=== PATIENT | male | born 1985 | race American Indian/Alaskan Native ===

== ENCOUNTER 2016-10-27 00:14 | Inpatient (IN) | payer SELFPAY ==
[2016-10-27] MEDS ORDERED: CATAPRES ONE (00:38)
[2016-10-27] MEDS ORDERED: CATAPRES PO ONE (00:55)
[2016-10-27 01:54] LABS: Urine Drugs of Abuse Note Disclamer
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
[2016-10-27 02:12] LABS: Bilirubin,Urine NEG (Negative); Blood,Urine NEG (Negative); Ketones,Urine 20 mg/dL (Negative); Leukocyte Esterase,Urine NEG (Negative); Mucus,Urine FEW /HPF; Nitrite,Urine NEG (Negative); Protein,Urine <15 mg/dL mg/dL (Negative); RBC,Urine < 1.0 /HPF (0.0-6.0)
[2016-10-27 02:40] LABS: Basophils % (Auto) 0.8 % (0.0-1.8); Eosinophils % (Auto) 3.6 % (0.0-4.3); Hematocrit 35.4 % (35.5-45.6); Hemoglobin 11.5 gm/dl (11.8-15.2); Mean Corpuscular HGB Conc 33 % (32-34); Mean Corpuscular Hemoglobin 29 pg (28-32); Mean Corpuscular Volume 89 fl (84-94); Red Blood Count 3.99 M/mm3 (3.65-5.03); White Blood Count 5.1 K/mm3 (4.5-11.0)
[2016-10-27 02:56] LABS: INR 0.97 (0.87-1.13); Partial Thromboplastin Time 26.1 Sec. (24.2-36.6)
[2016-10-27 03:03] LABS: Anion Gap 22 mmol/L; Blood Urea Nitrogen 6 mg/dL (9-20); Calcium 8.7 mg/dL (8.4-10.2); Carbon Dioxide 22 mmol/L (22-30); Chloride 95.9 mmol/L (98-107); Glucose 91 mg/dL (75-100); Potassium 3.3 mmol/L (3.6-5.0); Sodium 137 mmol/L (137-145)
[2016-10-27] MEDS ORDERED: ATIVAN ONE (03:57)
[2016-10-27 04:01] LABS: Platelet Count 219 K/mm3 (140-440)
[2016-10-27] MEDS ORDERED: ATIVAN IV PRN (04:02)
[2016-10-27] MEDS ORDERED: ATIVAN IV ONE (04:02)
[2016-10-27] MEDS ORDERED: VITAMIN B-1 100 MG, FOLVITE 1 MG, INFUVITE 10 ML in NACL 0.9% 1000 ML 1,000 ML IV ONE (04:02)
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
[2016-10-27] MEDS ORDERED: MORPHINE IV ONE (04:06)
[2016-10-27] MEDS ORDERED: TYLENOL PO ONE (04:06)
[2016-10-27] MEDS ORDERED: DULCOLAX PR PRN (05:18)
[2016-10-27] MEDS ORDERED: MILK OF MAGNESIA PO PRN (05:18)
[2016-10-27] MEDS ORDERED: TYLENOL PO PRN (05:18)
[2016-10-27] MEDS ORDERED: ZOFRAN IV PRN (05:18)
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
--- NOTE | 2016-10-27 06:20 | Admit Criteria Form ---
Admission Criteria Documentation: ALCOHOL AND PSYCHOACTIVE SUBSTANCE WITHDRAWAL Clinical Indications for Inpatient Care (Place ' X' for any and all applicable criteria): Ongoing inpatient care may be indicated for substance withdrawal[B][C] with ANY ONE of the following(1)(2)(3)(4)(21): [X ]I. Delirium due to alcohol or sedative[D] withdrawal is present. [ ]II. Marked signs of withdrawal are present as indicated by ANY ONE of the following(15)(22)(23) [ ]a) Heart rate greater than 120 beats per minute is present. [ ]b) Severe vomiting is present (eg, precludes maintenance of oral hydration). [ ]c) Grossly visible tremor is present. [ ]d) Profuse perspiration is present. [ ]e) Temperature greater than 101 degrees F (38.3 degrees C) is present. [ ]f) Other signs of severe withdrawal are present (eg, Altered mental status ) [ ]g) Severe withdrawal identified by standardized assessment score[A] [ ]III. Signs of withdrawal that require continued inpatient treatment as indicated by ANY ONE of the following(15)(22)(23): [ ]a) Inadequate response to pharmacotherapy (eg, benzodiazepines) [ ]b) Outpatient or lower level of care is not feasible or appropriate (eg, unavailable or inappropriate to patient condition or treatment history). [ ]IV. Withdrawal signs with high-risk indicator are present as manifested by ALL of the following[A](15)(22)(23) [ ]a) Signs of withdrawal are present as indicated by ANY ONE of the following: [ ]i. Tachycardia is present. [ ]ii. Nausea or vomiting is present. [ ]iii. Tremor is present. [ ]iv. Increased perspiration is present. [ ]v. Other signs of withdrawal are present. [ ]vi. Withdrawal identified by standardized assessment score [A] [ ]b) Elevated risk due to historical or comorbid factor is present as indicated by ANY ONE of the following: [ ]i. History of delirium due to withdrawal is present. [ ]ii. History of seizures due to withdrawal is present.[E] [ ]iii. Intrinsic seizure disorder (epilepsy) is present. [ ]iv. Patient is . [ ]v. Other significant medical history (eg, severe cardiac disease) is present, which is assessed to be at risk for destabilization due to withdrawal. [ ]V. Serious electrolyte abnormalities (eg, hyponatremia, hypokalemia, hypophosphatemia) requiring correction performable only in inpatient setting(6)(25) [ ]. Severe hypoglycemia requiring glucose infusions performable only in inpatient setting(6) [ ]VII. Drug toxicity or instability, such as Altered mental status, respiratory depression, or arrhythmias, that requires inpatient care [ ]VIII. Danger judged unmanageable at lower level of care because of ANY ONE of the following [ ]a) Danger to self [ ]b) Danger to others [ ]c) Grave disability (eg, inability to perform self-care necessary at lower level of care) The original [facility] Care Guidelines content created by [facility] Care Guidelines has been revised. The portions of the content which have been revised are identified through the use of italic text or in bold. [facility] [place] Guidelines has neither reviewed nor approved the modified material. All other unmodified content is copyright [facility] Care Guidelines. Please see references footnoted in the original [facility] CareGuidelines edition 2016 Admission Criteria Met: Yes
[2016-10-27] MEDS: PERCOCET 5/325 PO PRN ×3 (07:57→19:45)
[2016-10-27] MEDS: ATIVAN IV PRN ×4 (07:58→20:06)
[2016-10-27] MEDS: VITAMIN B-1 PO SCH (10:23)
[2016-10-27] MEDS: FOLVITE PO SCH (10:24)
[2016-10-27] MEDS: PROTONIX PO SCH (10:24)
[2016-10-27] MEDS: XARELTO PO SCH (10:24)
[2016-10-27] MEDS: D5W/0.45% NACL/KCL 20 MEQ 20 MEQ/1,000 ML BAG IV SCH (11:40)
[2016-10-27] MEDS: FLONASE NS SCH (21:19)
[2016-10-28] MEDS: ATIVAN IV PRN ×7 (01:54→23:16)
[2016-10-28] MEDS: PERCOCET 5/325 PO PRN ×4 (02:16→21:31)
[2016-10-28 06:49] LABS: Basophils % (Auto) 0.8 % (0.0-1.8); Hematocrit 34.8 % (35.5-45.6); Hemoglobin 11.2 gm/dl (11.8-15.2); Mean Corpuscular HGB Conc 32 % (32-34); Mean Corpuscular Hemoglobin 29 pg (28-32); Mean Corpuscular Volume 91 fl (84-94); Red Blood Count 3.85 M/mm3 (3.65-5.03); Red Cell Distribution Width 18.8 % (13.2-15.2); White Blood Count 4.4 K/mm3 (4.5-11.0)
[2016-10-28 07:09] LABS: BUN/Creatinine Ratio 8.33; Blood Urea Nitrogen 5 mg/dL (9-20); Calcium 9.1 mg/dL (8.4-10.2); Carbon Dioxide 20 mmol/L (22-30); Glucose 76 mg/dL (75-100); Magnesium 1.4 mg/dL (1.7-2.3)
[2016-10-28 07:10] LABS: Anion Gap 19 mmol/L; Chloride 100.8 mmol/L (98-107); Potassium 4.3 mmol/L (3.6-5.0); Sodium 135 mmol/L (137-145)
[2016-10-28 07:33] LABS: Platelet Count 161 K/mm3 (140-440)
[2016-10-28] MEDS: XARELTO PO SCH (10:36)
[2016-10-28] MEDS: PROTONIX PO SCH (10:36)
[2016-10-28] MEDS: FOLVITE PO SCH (10:36)
[2016-10-28] MEDS: VITAMIN B-1 PO SCH (10:39)
[2016-10-28] MEDS: FLONASE NS SCH ×3 (10:40→21:32)
[2016-10-28] MEDS ORDERED: D5/0.45NS 1,000 ML IV SCH (11:00)
[2016-10-28] MEDS: APRESOLINE IV PRN (11:16)
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
[2016-10-28] MEDS: LIBRIUM PO PRN ×2 (15:20→21:31)
[2016-10-28] MEDS: D5W/0.45% NACL/KCL 20 MEQ 20 MEQ/1,000 ML BAG IV SCH (16:08)
[2016-10-28] MEDS ORDERED: PERCOCET 5/325 PO PRN (20:43)
[2016-10-28] MEDS: ROXICODONE PO PRN (21:31)
[2016-10-29] MEDS: APRESOLINE IV PRN (00:34)
[2016-10-29] MEDS: ATIVAN IV PRN ×2 (02:31→03:26)
[2016-10-29] MEDS: ROXICODONE PO PRN ×4 (03:26→22:15)
[2016-10-29] MEDS: PERCOCET 5/325 PO PRN ×2 (03:26→10:24)
[2016-10-29] MEDS: LIBRIUM PO PRN (03:27)
[2016-10-29] MEDS: HABITROL TD SCH (04:54)
[2016-10-29] MEDS ORDERED: ATIVAN PO PRN (05:31)
[2016-10-29] MEDS: ATIVAN PO PRN ×2 (06:10→08:18)
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
[2016-10-29] MEDS: FOLVITE PO SCH (09:24)
[2016-10-29] MEDS: XARELTO PO SCH (09:24)
[2016-10-29] MEDS: VITAMIN B-1 PO SCH (09:24)
[2016-10-29] MEDS: PROTONIX PO SCH (09:24)
[2016-10-29] MEDS: FLONASE NS SCH ×2 (09:25→23:39)
[2016-10-29] MEDS: HCTZ PO SCH (09:28)
[2016-10-29] MEDS ORDERED: APRESOLINE IV PRN (09:30)
[2016-10-29] MEDS ORDERED: ZESTRIL PO SCH (10:00)
[2016-10-29] MEDS ORDERED: LIBRIUM PO PRN ×2 (11:30)
[2016-10-29] MEDS: LIBRIUM PO SCH ×3 (14:13→21:50)
[2016-10-30] MEDS: ROXICODONE PO PRN (04:58)
[2016-10-30 06:12] LABS: BUN/Creatinine Ratio 16.66; Blood Urea Nitrogen 10 mg/dL (9-20); Calcium 9.3 mg/dL (8.4-10.2); Carbon Dioxide 23 mmol/L (22-30); Chloride 96.8 mmol/L (98-107); Glucose 83 mg/dL (75-100); Sodium 134 mmol/L (137-145)
[2016-10-30 06:15] LABS: Anion Gap 19 mmol/L; Potassium 4.4 mmol/L (3.6-5.0)
[2016-10-30 08:34] VITALS: BP 100/57
[2016-10-30] MEDS: HABITROL TD SCH ×2 (08:49→10:00)
[2016-10-30] MEDS: PROTONIX PO SCH ×2 (08:49→10:00)
[2016-10-30] MEDS: FOLVITE PO SCH ×2 (08:50→10:00)
[2016-10-30] MEDS: XARELTO PO SCH ×2 (08:50→10:00)
[2016-10-30] MEDS: VITAMIN B-1 PO SCH ×2 (08:50→10:00)
[2016-10-30] MEDS: HCTZ PO SCH ×2 (08:50→10:00)
[2016-10-30] MEDS: FLONASE NS SCH ×2 (08:51→10:58)
[2016-10-30] MEDS: LIBRIUM PO SCH ×2 (08:52→10:00)
--- NOTE | 2016-10-30 08:55 | Discharge Summary ---
Providers - Providers Date of Admission: 10/27/16 05:18 Attending physician: TYREE RAYO MD Primary care physician: [employer]OSED [employer] SCREEN WATCHER Hospitalization Condition: Serious Hospital course: 31-year-old male with a past medical history of heavy alcohol abuse who was living in a tent ( homeless) who presented to the hospital for alcohol detox. He was treated with IV fluids, benzodiazepine taper, he was found to have low magnesium and low potassium which were repleted. He clinically improved, he was continued on blood thinners for history of multiple PEs. Patient clinically improved and retirement accommodations were obtained for him prior to discharge X Discharge diagnoses 1. Alcohol withdrawal 2. Alcohol dependence Patient has been counseled, he exercises desire to quit 3. History of multiple PEs 4. Hypokalemia 5. Hypomagnesemia Disposition: DISCHARGED TO HOME OR SELFCARE Time spent for discharge: 35 minutes Core Measure Documentation - Palliative Care Palliative Care/ Comfort Measures: Not Applicable - Core Measures Any of the following diagnoses?: none Exam - Constitutional Vitals: Temp Pulse Resp BP Pulse Ox 98.1 F 68 16 100/57 100 10/30/16 08:33 10/30/16 08:33 10/30/16 08:33 10/30/16 08:33 10/30/16 08:33 General appearance: Present: no acute distress, well-nourished - EENT Eyes: Present: PERRL ENT: hearing intact, clear oral mucosa - Neck Neck: Present: supple, normal ROM - Respiratory Respiratory effort: normal Respiratory: bilateral: CTA - Cardiovascular Heart Sounds: Present: S1 & S2. Absent: rub, click - Extremities Extremities: pulses symmetrical, No edema Peripheral Pulses: within normal limits - Abdominal General gastrointestinal: Present: soft, non-tender, non-distended, normal bowel sounds Male genitourinary: Present: normal - Integumentary Integumentary: Present: clear, warm, dry - Musculoskeletal Musculoskeletal: gait normal, strength equal bilaterally - Psychiatric Psychiatric: appropriate mood/affect, intact judgment & insight - Neurologic Neurologic: CNII-XII intact, moves all extremities Plan Follow up with: PRIMARY CARE, [Primary Care Provider] - 3-5 Days Prescriptions: Folic Acid [Folvite] 1 mg PO QDAY #30 tablet Klonopin 1 mg PO BID #14 Mometasone Furoate [Nasonex] 2 spray NS BID #1 spray.pump Nicotine [Habitrol] 14 mg TD QDAY #14 patch Oxycodone HCl/Acetaminophen [Percocet 10/325 mg] 1 each PO Q6HR PRN #14 tablet PRN Reason: Pain Rivaroxaban [Xarelto] 20 mg PO QDAY #30 tablet Thiamine [Vitamin B-1] 100 mg PO DAILY #30 tablet
[2016-10-30] MEDS ORDERED: PERCOCET 5/325 PO ONE (11:01)
[2016-10-30] MEDS ORDERED: LIBRIUM PO SCH (11:30)
[2016-10-31] MEDS ORDERED: LIBRIUM PO SCH (11:30)
== END 2016-10-30 11:15 | disposition home or self-care (01) | DRG 897 ==
LOC: ED 00:14 → 4A 05:18
PROVIDERS: ADMIT Internal Medicine; ATTEND Internal Medicine
DX: F10.231 Alcohol dependence with withdrawal delirium (principal); Z86.711 Personal history of pulmonary embolism; F41.9 Anxiety disorder, unspecified; Z96.653 Presence of artificial knee joint, bilateral; Z86.718 Personal history of other venous thrombosis and embolism; M10.9 Gout, unspecified; Z82.49 Family history of ischemic heart disease and other diseases of the circulatory system; F17.210 Nicotine dependence, cigarettes, uncomplicated; Z88.9 Allergy status to unspecified drugs, medicaments and biological substances; Z59.0 Homelessness; E87.6 Hypokalemia; E83.42 Hypomagnesemia; I10 Essential (primary) hypertension; Z71.41 Alcohol abuse counseling and surveillance of alcoholic; G44.319 Acute post-traumatic headache, not intractable
CPT/HCPCS: 36415; 70486; 80048; 80307; 80320; 81001; 82962; 83735; 84484; 85025; 85610; 85730; 93005; 93010; 96365; 96366; 96375; G0480; J0360; J2060; J2270; J2405; J3411; J7030

== ENCOUNTER 2017-02-05 22:48 | Emergency (ER) | payer SELFPAY ==
[2017-02-05 23:32] LABS: Urine Drugs of Abuse Note Disclamer
[2017-02-05 23:37] LABS: Bilirubin,Urine NEG (Negative); Blood,Urine SM (Negative); Ketones,Urine NEG (Negative); Leukocyte Esterase,Urine NEG (Negative); Nitrite,Urine NEG (Negative); Protein,Urine <15 mg/dL mg/dL (Negative); RBC,Urine < 1.0 /HPF (0.0-6.0); Urobilinogen,Urine < 2.0 mg/dL (<2.0); WBC,Urine < 1.0 /HPF (0.0-6.0)
[2017-02-06 00:11] LABS: Hematocrit 39.7 % (35.5-45.6); Hemoglobin 13.3 gm/dl (11.8-15.2); Mean Corpuscular HGB Conc 34 % (32-34); Mean Corpuscular Hemoglobin 29 pg (28-32); Mean Corpuscular Volume 87 fl (84-94); Platelet Count 199 K/mm3 (140-440); Red Blood Count 4.57 M/mm3 (3.65-5.03); White Blood Count 3.9 K/mm3 (4.5-11.0)
[2017-02-06 00:19] LABS: Red Cell Distribution Width 20.2 % (13.2-15.2)
[2017-02-06 00:23] LABS: Alanine Aminotransferase 34 units/L (7-56); Albumin 4.5 g/dL (3.9-5); Albumin/Globulin Ratio 1.4 %; Alkaline Phosphatase 68 units/L (35-129); BUN/Creatinine Ratio 11.66; Blood Urea Nitrogen 7 mg/dL (9-20); Calcium 9.2 mg/dL (8.4-10.2); Carbon Dioxide 24 mmol/L (22-30); Chloride 97.9 mmol/L (98-107); Glucose 97 mg/dL (75-100); Lipase 53 units/L (13-60); Potassium 3.6 mmol/L (3.6-5.0); Sodium 139 mmol/L (137-145); Total Protein 7.8 g/dL (6.3-8.2)
[2017-02-06 00:29] LABS: Anion Gap 21 mmol/L
[2017-02-06] MEDS ORDERED: NACL 0.9% 1000 ML 1,000 ML IV ONE (01:36)
--- NOTE | 2017-02-06 01:52 | Emergency Department Report ---
HPI - General Chief Complaint: Abdominal Pain Time Seen by Provider: 02/06/17 01:13 - HPI HPI: This is a 31-year-old -[place] male presents to the emergency department with complaint of right upper quadrant abdominal pain that is been going on since yesterday. The patient says "I am a known alcoholic" and says that he drank 3 large beers today, despite the pain, hoping that it would get rid of his discomfort. He has a past medical history of DVT and is on Xarelto. He also has a history of coronary artery disease, hypertension, elevated liver function tests, alcohol withdrawal seizures, pancreatitis. He has not taken anything, besides alcohol consumption, for his pain prior to presentation. No recent travel or sick contacts at home. He does not have a primary care physician. He denies any illicit drugs. ED Past Medical Hx - Past Medical History Hx Hypertension: Yes Hx Heart Attack/AMI: Yes Hx Deep Vein Thrombosis: Yes Hx Pulmonary Embolism: Yes Hx Liver Disease: Yes (elev. LFTs) Hx Seizures: Yes (ETOH withdrawal) Hx Psychiatric Treatment: Yes (Anxiety, ADHD,) Hx Asthma: Yes Additional medical history: DVTs, pancreatitis, COLITIS. ETOH withdrawal sz- intubated @ [place] week of 10/06/14, MRSA - Surgical History Additional Surgical History: b/l knee surgeries - Social History Smoking Status: Current Every Day Smoker Substance Use Type: Alcohol - Medications Home Medications: Home Medications Medication Instructions Recorded Confirmed Last Taken Type Esomeprazole Magnesium [NexIUM] 20 mg PO QDAY #30 tab 10/30/16 10/27/16 Unknown Rx Folic Acid [Folvite] 1 mg PO QDAY #30 tablet 10/30/16 Unknown Rx Klonopin 1 mg PO BID #14 10/30/16 Unknown Rx Mometasone Furoate [Nasonex] 2 spray NS BID #1 spray.pump 10/30/16 Unknown Rx Nicotine [Habitrol] 14 mg TD QDAY #14 patch 10/30/16 Unknown Rx Oxycodone HCl/Acetaminophen 1 each PO Q6HR PRN #14 tablet 10/30/16 Unknown Rx [Percocet 10/325 mg] Rivaroxaban [Xarelto] 20 mg PO QDAY #30 tablet 10/30/16 Unknown Rx Thiamine [Vitamin B-1] 100 mg PO DAILY #30 tablet 10/30/16 Unknown Rx ED Review of Systems ROS: Stated complaint: ABD PAIN Other details as noted in HPI Comment: All other systems reviewed and negative Constitutional: denies: chills, fever Eyes: denies: eye pain, eye discharge, vision change ENT: denies: ear pain, throat pain Respiratory: denies: cough, shortness of breath, wheezing Cardiovascular: denies: chest pain, palpitations Gastrointestinal: abdominal pain. denies: nausea, vomiting Genitourinary: denies: urgency, dysuria Musculoskeletal: denies: back pain, joint swelling, arthralgia Skin: denies: rash, lesions Neurological: denies: headache, weakness, paresthesias Physical Exam - Physical Exam Vital Signs: Vital Signs 02/05/17 23:17 Temperature 98.6 F Pulse Rate 116 H Respiratory 18 Rate Blood Pressure 148/102 Blood Pressure 148/102 [Left] O2 Sat by Pulse 96 Oximetry Physical Exam: GENERAL: The patient is well-developed well-nourished. HEENT: Normocephalic. Atraumatic. Extraocular motions are intact. Patient has moist mucous membranes. Pupils equal reactive to light bilaterally. NECK: Supple. Trachea is midline. CHEST/LUNGS: Clear to auscultation. There is no respiratory distress noted. HEART/CARDIOVASCULAR: Regular. There is no tachycardia. There is no gallop rub or murmur. ABDOMEN: Abdomen is soft. There is tenderness to palpation to the epigastric and right upper quadrant region of the abdomen. No guarding rebound tenderness. No peritoneal signs. Patient has normal bowel sounds. There is no abdominal distention. SKIN: Skin is warm and dry. NEURO: The patient is awake, alert, and oriented. The patient is cooperative. The patient has no focal neurologic deficits. The patient has normal speech and gait. MUSCULOSKELETAL: There is no tenderness or deformity. There is no limitation range of motion. There is no evidence of acute injury. ED Course Vital Signs 02/05/17 23:17 Temperature 98.6 F Pulse Rate 116 H Respiratory 18 Rate Blood Pressure 148/102 Blood Pressure 148/102 [Left] O2 Sat by Pulse 96 Oximetry ED Medical Decision Making - Lab Data Result diagrams: 02/05/17 23:39 02/05/17 23:39 - Radiology Data Radiology results: report reviewed CT of the abdomen and pelvis without contrast did not show any acute process. Right upper quadrant abdominal ultrasound does not show any acute process. - Medical Decision Making 31-year-old male with known history of alcoholism presents with alcohol intoxication and complaint of abdominal pain. His labs show slightly elevated bilirubin and elevated AST. The rest the labs are mostly unremarkable except for the blood alcohol level which was at 0.3. There was an abdominal ultrasound and a CT of the abdomen without contrast that did not show any acute process or etiology of his symptoms. He was given an air bag, IV fluid resuscitation. Attempted to see if there was an patient detox he can be sent to but without insurance there is nothing available at this time. He remained in the emergency department until he got to a legally sober level. He was monitored the entire time and there is no sign of any withdrawal symptoms and the patient was discharged home with referrals for primary care, gastroenterology and [facility]. Critical Care Time: No Critical care attestation.: If time is entered above; I have spent that time in minutes in the direct care of this critically ill patient, excluding procedure time. ED Disposition Clinical Impression: Alcoholism /alcohol abuse Alcohol intoxication Qualifiers: Complication of substance-induced condition: with unspecified complication Qualified Code(s): F10.929 - Alcohol use, unspecified with intoxication, unspecified Abdominal pain Qualifiers: Abdominal location: right upper quadrant Qualified Code(s): R10.11 - Right upper quadrant pain Disposition: DC-01 TO HOME OR SELFCARE Is pt being admited?: No Condition: Stable Instructions: Alcohol Intoxication (ED), Abuse of Alcohol (ED), Abdominal Pain (ED) Additional Instructions: Please follow-up with a primary care doctor in the next few days. I referral for a local desulphuring operator, Dr. Kramer, occasionally need to follow-up regarding her abdominal pain. Return to the emergency department with any worsening of your symptoms or any acute distress. I have given you a referral for the [facility] facility medication would like to talk to someone about assisting with alcohol detox. Referrals: [facility] [Outside] - 3-5 Days [facility] [Outside] - 3-5 Days MANASA KRAMER MD [Staff Physician] - 3-5 Days PRIMARY CARE, [Primary Care Provider] - 3-5 Days ROBERTO GARSIA MD [Staff Physician] - 3-5 Days
[2017-02-06] MEDS ORDERED: 1: FOLVITE 1 MG, INFUVITE 10 ML, VITAMIN B-1 100 MG in NACL 0.9% 1000 ML 988.8 ML 2: NA IV SCH (02:00)
[2017-02-06 02:09] LABS: Anisocytosis 1+; Blastocytes % (Manual) 0 %; Diff Status Complete; Platelet Estimate Consistent w Auto
--- NOTE | 2017-02-06 02:29 | Ultrasound Report ---
FINAL REPORT PROCEDURE: US ABDOMEN LIMITED TECHNIQUE: Real-time sonography was performed of the with image documentation. CPT 28404 HISTORY: elevated bilirubin and AST COMPARISON: No prior studies are available for comparison. FINDINGS: The gallbladder is normal. No stones are identified. Common bile duct measures 3 millimeters. The visualized portion of the liver, right kidney and pancreas are normal.. IMPRESSION: The gallbladder is normal. The common bile duct is normal measuring 3 millimeters
[2017-02-06] MEDS ORDERED: NACL ONE (05:23)
--- NOTE | 2017-02-06 06:46 | Cat Scan Report ---
FINAL REPORT PROCEDURE: CT ABDOMEN PELVIS WO CON TECHNIQUE: Computerized axial tomography of the abdomen and pelvis was performed without intravenous contrast. This study is performed without intravascular contrast material and its sensitivity for abdominal and pelvic pathology, including neoplasms, inflammation, abscess, free fluid, thrombosis, arterial dissection and infarction, is reduced compared with a contrast enhanced study. HISTORY: Abd pain COMPARISON: No prior studies are available for comparison. FINDINGS: Visualized lower thorax: No significant abnormality. Liver: Normal size and attenuation. Spleen: Normal size and attenuation. Gallbladder and biliary system: Normal. Pancreas: Normal. Adrenals: Normal. Kidneys: Normal. GI tract: No obstruction. No ileus or enteritis. The cecum, appendix region and colon are normal.. Lymph nodes and mesentery: Normal. Vasculature: There is an inferior vena cava filter. Bladder: Normal. Reproductive organs: Normal. Peritoneum: No free fluid. Musculoskeletal structures: No significant abnormality. Other: None. IMPRESSION: There is no evidence of intestinal or urinary tract obstruction. No ileus or enteritis..
[2017-02-06 10:58] VITALS: BP 137/78
== END 2017-02-06 10:58 | disposition home or self-care (01) ==
LOC: ED 22:48
DX: F10.929 Alcohol use, unspecified with intoxication, unspecified (principal); R10.11 Right upper quadrant pain; I10 Essential (primary) hypertension; I25.2 Old myocardial infarction; J45.909 Unspecified asthma, uncomplicated; F17.200 Nicotine dependence, unspecified, uncomplicated
CPT/HCPCS: 36415; 74176; 76705; 80053; 80307; 81001; 83690; 85007; 85025; 96365; 96366; 99284; G0480; J3411; J7030; 80320

== ENCOUNTER → 2017-10-01 00:33 | Emergency (ER) | payer SELFPAY | END | disposition left against medical advice (07) | LOC: ED 00:33 | DX: Z00.8 Encounter for other general examination (principal); Z53.21 Procedure and treatment not carried out due to patient leaving prior to being seen by health care provider ==

== ENCOUNTER 2017-10-01 03:47 | Inpatient (IN) | payer OTHER ==
[2017-10-01] MEDS ORDERED: TYLENOL ONE (06:40)
[2017-10-01] MEDS ORDERED: TYLENOL PO ONE (06:42)
[2017-10-01 07:06] LABS: Basophils # (Auto) 0.1 K/mm3 (0.0-0.1); Basophils % (Auto) 0.9 % (0.0-1.8); Eosinophils # (Auto) 0.4 K/mm3 (0.0-0.4); Eosinophils % (Auto) 4.8 % (0.0-4.3); Hematocrit 32.7 % (35.5-45.6); Hemoglobin 10.7 gm/dl (11.8-15.2); Lymphocytes # (Auto) 2.5 K/mm3 (1.2-5.4); Lymphocytes % (Auto) 30.5 % (13.4-35.0); Mean Corpuscular HGB Conc 33 % (32-34); Mean Corpuscular Hemoglobin 27 pg (28-32); Mean Corpuscular Volume 83 fl (84-94); Monocytes # (Auto) 0.6 K/mm3 (0.0-0.8); Monocytes % (Auto) 7.7 % (0.0-7.3); Red Blood Count 3.96 M/mm3 (3.65-5.03)
[2017-10-01 07:12] LABS: Platelet Count 131 K/mm3 (140-440); Red Cell Distribution Width 22.9 % (13.2-15.2)
[2017-10-01 07:15] LABS: INR 0.84 (0.87-1.13)
--- NOTE | 2017-10-01 07:16 | Emergency Department Report ---
ED General Adult HPI - General Chief complaint: Back Pain/Injury Stated complaint: DVT BLOOD CLOT Time Seen by Provider: 10/01/17 06:27 Source: patient Mode of arrival: Ambulatory Limitations: No Limitations - History of Present Illness Initial comments: This is a 32 year old man that has a history of recurrent pulmonary embolism and medical noncompliance. He admits to me that he has been admitted to multiple hospitals in the [facility] area for the same. He states he is unable to afford his medication. He states he is received free Eliquis and/or Xarelto for a year and is out of that benefit. He admits to alcohol abuse. He admits to a recent hospitalization but is very vague and essentially unwilling to tell me which hospital and when he was discharged. It might have been an [facility] and it might have been a town he states he will not say exactly when he left the hospital. He still has a recent hospital armband. He is here today because he has dyspnea on exertion. He does not complain of chest pain. However he does complain of diffuse abdominal pain and states he knows he has pancreatitis. He is complaining that a nurse did not come and do a "midline" IV catheter immediately when he arrives and before I came. 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 Obviously he has been rather demanding to the nursing staff who has tried their best to obtain intravenous access. The patient has had multiple central lines in the past. In addition he has an IVC filter. He denies being on any type of anticoagulants at this time. -: week(s) Location: abdomen (diffuse) Radiation: non-radiation Severity scale (0 -10): 2 Quality: aching Consistency: now resolved Improves with: none Worsens with: none Associated Symptoms: nausea/vomiting (nausea no vomiting), shortness of breath ( no cough no chest pain) - Related Data Previous Rx's Medication Instructions Recorded Last Taken Type Esomeprazole Magnesium [NexIUM] 20 mg PO QDAY #30 tab 10/30/16 Unknown Rx Folic Acid [Folvite] 1 mg PO QDAY #30 tablet 10/30/16 Unknown Rx Klonopin 1 mg PO BID #14 10/30/16 Unknown Rx Mometasone Furoate [Nasonex] 2 spray NS BID #1 spray.pump 10/30/16 Unknown Rx Nicotine [Habitrol] 14 mg TD QDAY #14 patch 10/30/16 Unknown Rx Oxycodone HCl/Acetaminophen 1 each PO Q6HR PRN #14 tablet 10/30/16 Unknown Rx [Percocet 10/325 mg] Rivaroxaban [Xarelto] 20 mg PO QDAY #30 tablet 10/30/16 Unknown Rx Thiamine [Vitamin B-1] 100 mg PO DAILY #30 tablet 10/30/16 Unknown Rx Allergies Allergy/AdvReac Type Severity Reaction Status Date / Time enoxaparin sodium Allergy Bleeding Verified 10/19/14 01:42 [From Lovenox] ziprasidone HCl [From Geodon] Allergy Unknown Verified 10/19/14 01:43 ziprasidone mesylate Allergy Unknown Verified 10/19/14 01:43 [From Geodon] warfarin sodium AdvReac Rash Verified 10/18/14 18:41 [From Coumadin] ED Review of Systems ROS: Stated complaint: DVT BLOOD CLOT Other details as noted in HPI Constitutional: denies: chills, fever Eyes: denies: eye pain, eye discharge, vision change ENT: denies: ear pain, throat pain Respiratory: SOB with exertion. denies: cough, wheezing Cardiovascular: denies: chest pain, palpitations Endocrine: no symptoms reported Gastrointestinal: abdominal pain. denies: nausea, diarrhea Genitourinary: denies: urgency, dysuria Musculoskeletal: denies: back pain, joint swelling, arthralgia Skin: denies: rash, lesions Neurological: denies: headache, weakness, paresthesias Psychiatric: anxiety. denies: depression Hematological/Lymphatic: denies: easy bleeding, easy bruising ED Past Medical Hx - Past Medical History Previous Medical History?: Yes Hx Hypertension: Yes Hx Heart Attack/AMI: Yes Hx Deep Vein Thrombosis: Yes Hx Pulmonary Embolism: Yes Hx Liver Disease: Yes (elev. LFTs) Hx Seizures: Yes (ETOH withdrawal) Hx Psychiatric Treatment: Yes (Anxiety, ADHD,) Hx Asthma: Yes Additional medical history: DVTs, pancreatitis, COLITIS. ETOH withdrawal sz- intubated @ [place] week of 10/06/14, MRSA - Surgical History Past Surgical History?: Yes Additional Surgical History: b/l knee surgeries - Social History Smoking Status: Current Every Day Smoker Substance Use Type: Alcohol - Medications Home Medications: Home Medications Medication Instructions Recorded Confirmed Last Taken Type Esomeprazole Magnesium [NexIUM] 20 mg PO QDAY #30 tab 10/30/16 10/27/16 Unknown Rx Folic Acid [Folvite] 1 mg PO QDAY #30 tablet 10/30/16 Unknown Rx Klonopin 1 mg PO BID #14 10/30/16 Unknown Rx Mometasone Furoate [Nasonex] 2 spray NS BID #1 spray.pump 10/30/16 Unknown Rx Nicotine [Habitrol] 14 mg TD QDAY #14 patch 10/30/16 Unknown Rx Oxycodone HCl/Acetaminophen 1 each PO Q6HR PRN #14 tablet 10/30/16 Unknown Rx [Percocet 10/325 mg] Rivaroxaban [Xarelto] 20 mg PO QDAY #30 tablet 10/30/16 Unknown Rx Thiamine [Vitamin B-1] 100 mg PO DAILY #30 tablet 10/30/16 Unknown Rx ED Physical Exam - General Limitations: No Limitations General appearance: alert, anxious, other (somewhat agitated) - Head Head exam: Present: atraumatic, normocephalic - Eye Eye exam: Present: normal appearance, PERRL, EOMI. Absent: scleral icterus - ENT ENT exam: Present: normal exam, mucous membranes moist - Neck Neck exam: Present: normal inspection. Absent: tenderness, meningismus - Respiratory Respiratory exam: Present: normal lung sounds bilaterally. Absent: respiratory distress - Cardiovascular Cardiovascular Exam: Present: normal rhythm, tachycardia. Absent: systolic murmur, diastolic murmur, rubs, gallop - GI/Abdominal GI/Abdominal exam: Present: soft, normal bowel sounds. Absent: distended, tenderness, guarding, rebound, rigid - Rectal Rectal exam: Present: deferred - Extremities Exam Extremities exam: Present: normal inspection - Back Exam Back exam: Present: normal inspection - Neurological Exam Neurological exam: Present: alert, oriented X3, CN II-XII intact. Absent: motor sensory deficit - Psychiatric Psychiatric exam: Present: normal affect, normal mood - Skin Skin exam: Present: warm, dry, intact, normal color. Absent: rash ED Course Vital Signs 10/01/17 10/01/17 10/01/17 04:01 06:31 06:37 Temperature 97.6 F 100.1 F H Pulse Rate 122 H 114 H 106 H Respiratory 20 12 Rate Blood Pressure 141/83 O2 Sat by Pulse 99 100 Oximetry 10/01/17 10/01/17 06:46 07:00 Temperature Pulse Rate 118 H 124 H Respiratory 14 13 Rate Blood Pressure 141/77 141/77 O2 Sat by Pulse 99 99 Oximetry - Reevaluation(s) Reevaluation #1: Low-grade fever and tachycardia was noted. Therefore the patient was given up. Antibiotics. He was given IV fluids. Nurses were unable to establish access. Therefore a placed a left IJ line. This was done without difficulty. The patient had a CT of his chest and abdomen. The angiogram of the chest showed bilateral pulmonary embolism but nonocclusive and reasonably peripheral. This was discussed with Dr. Guzman. The patient had an elevated PTT greater than 240. This was bizarre the off anticoagulants. A repeat coagulation profile is pending. The patient will be admitted by Dr. Reinaldo cunningham for further care and evaluation. He also has a history of alcohol withdrawal. He's been given Ativan and placed on a CIWA protocol. 10/01/17 11:03 10/01/17 11:17 Reevaluation #2: Anticoagulant protocol will be per Dr. Fernandez will be admitting this patient. 10/01/17 11:21 - Central Line Placement Left IJ Consent Obtained: verbal consent Time Out Performed: No Patient Placed on Monitor/Pulse Ox: Yes Prep: mask, gown, gloves Central Line Prep: Chlorhexidine scrub Local Anesthesia Used: Lidocaine 1% Amount of Anesthesia Used (mls): 7 Ultrasound Used for Placement: No Central Line Lumen Inserted: triple Bloods Obtained for Lab: Yes Central Line Position: good blood return, all ports aspirated, flus, sutured in place with 3-0 Dressing Applied: Tegaderm Post Procedure X-Ray: tip of catheter in good p (chest x-ray shows catheter at the cavoatrial junction) Patient Tolerated Procedure: well Complications: none (single puncture nonpulsatile dark red blood procedure well tolerated blood sent to the lab.) ED Medical Decision Making - Lab Data Result diagrams: 10/01/17 06:54 10/01/17 06:54 Laboratory Results - last 24 hr 10/01/17 10/01/17 06:54 06:54 WBC 8.3 RBC 3.96 Hgb 10.7 L Hct 32.7 L MCV 83 L MCH 27 L MCHC 33 RDW 22.9 H Plt Count 131 L Lymph % (Auto) 30.5 Dare % (Auto) 7.7 H Eos % (Auto) 4.8 H Baso % (Auto) 0.9 Lymph # 2.5 Dare # 0.6 Eos # 0.4 Baso # 0.1 Seg Neutrophils % 56.1 Seg Neutrophils # 4.7 PT 11.9 L INR 0.84 L - EKG Data -: EKG Interpreted by Me EKG shows normal: sinus rhythm, axis, intervals, QRS complexes, ST-T waves Rate: tachycardia - EKG Data Interpretation: nonspecific ST-T wave yazan - Radiology Data Radiology results: report reviewed Critical Care Time: Yes Critical care time in (mins) excluding proc time.: 70 Critical care attestation.: If time is entered above; I have spent that time in minutes in the direct care of this critically ill patient, excluding procedure time. ED Disposition Clinical Impression: Bilateral pulmonary embolism, Systemic inflammatory response syndrome Alcohol withdrawal syndrome Qualifiers: Complication of substance-induced condition: uncomplicated Qualified Code(s): F10.230 - Alcohol dependence with withdrawal, uncomplicated Disposition: DC-09 OP ADMIT IP TO THIS HOSP Is pt being admited?: Yes Does the pt Need Aspirin: Yes Condition: Stable Referrals: JANIYA DUVALL MD [Primary Care Provider] - 3-5 Days Time of Disposition: 11:22
[2017-10-01] MEDS ORDERED: ZOFRAN IV ONE (07:21)
[2017-10-01] MEDS ORDERED: NORCO 5/325 PO ONE (07:21)
[2017-10-01] MEDS ORDERED: NACL 0.9% 1000 ML 1,000 ML IV ONE (07:21)
[2017-10-01 07:30] LABS: Alanine Aminotransferase 14 units/L (7-56); Albumin 4.3 g/dL (3.9-5); BUN/Creatinine Ratio 18; Blood Urea Nitrogen 11 mg/dL (9-20); Calcium 9.5 mg/dL (8.4-10.2); Hemolysis Index 38
[2017-10-01] MEDS ORDERED: NACL ONE (07:34)
[2017-10-01 07:49] LABS: Partial Thromboplastin Time > 240.0 Sec. (24.2-36.6)
[2017-10-01 08:07] LABS: Bacteria,Urine 1+ /HPF (Negative); Bilirubin,Urine NEG (Negative); Blood,Urine NEG (Negative); Color,Urine Yellow (Yellow); Urobilinogen,Urine < 2.0 mg/dL (<2.0)
[2017-10-01] MEDS ORDERED: XYLOCAINE 1% 20 mL ONE (08:24)
[2017-10-01 08:28] LABS: Amphetamine Screen,Urine PRESUMPTIVE NEGATIVE; Cannabinoid Screen,Urine PRESUMPTIVE NEGATIVE; Cocaine Screen,Urine PRESUMPTIVE NEGATIVE; Methadone Screen,Urine PRESUMPTIVE NEGATIVE; Opiate Screen,Urine PRESUMPTIVE NEGATIVE
[2017-10-01 08:37] LABS: Benzodiazepines Screen,Urine PRESUMPTIVE POSITIVE
[2017-10-01 09:17] LABS: Creatine Kinase MB 2.5 ng/mL (0.0-4.0)
--- NOTE | 2017-10-01 09:27 | XRay Report ---
AP CHEST: HISTORY: Central line placement A left IJ venous catheter has been inserted which terminates overlying the cavoatrial junction. No pneumothorax. AP view of the chest demonstrates a normal mediastinal and cardiac contour with clear lungs and normal bony and soft tissue structures. IMPRESSION: Unremarkable AP chest.
[2017-10-01] MEDS ORDERED: VANCOMYCIN 1,750 MG in NACL 0.9% 500 ML 500 ML IV ONE (09:30)
[2017-10-01] MEDS ORDERED: MORPHINE ONE (09:38)
[2017-10-01] MEDS ORDERED: MORPHINE IV ONE (09:38)
[2017-10-01] MEDS ORDERED: ZOFRAN ONE (09:38)
[2017-10-01] MEDS ORDERED: ZOSYN/NS 4.5GM/100ML 4.5 GM/100 ML VIAL IV SCH (10:00)
[2017-10-01] MEDS ORDERED: VANCOMYCIN PHARMACY TO DOSE IV SCH (10:00)
[2017-10-01] MEDS ORDERED: ATIVAN IV PRN (10:25)
--- NOTE | 2017-10-01 10:31 | Cat Scan Report ---
CT ABDOMEN PELVIS WITH CONTRAST: HISTORY: Abdominal pain. COMPARISON: 02/06 at 17. TECHNIQUE: Helical CT in 1.25mm intervals following IV contrast. Sagittal and coronal reconstructions. FINDINGS: Lung bases: Normal. Liver: Normal. Biliary system: Normal. Pancreas: Normal. Spleen: Normal. Kidneys/ureters/bladder: Normal. Adrenal glands: Normal. Aorta: Normal. An IVC filter is in place at the level of L2-3. Intestines: Normal. Appendix: Normal. Pelvic viscera: Normal. Ascites: None. Adenopathy: None. Musculoskeletal: Normal. IMPRESSION: Unremarkable CT scan of the abdomen and pelvis with contrast.
--- NOTE | 2017-10-01 10:36 | Cat Scan Report ---
CTA CHEST: HISTORY: Difficulty in breathing. COMPARISON: none. TECHNIQUE: Helical CT in 1.25mm intervals following IV contrast. Pulmonary embolus protocol. Sagittal and coronal reformatted images. Rotational MIP images. FINDINGS: Contrast bolus is satisfactory. Nonocclusive pulmonary emboli are identified leading to both lower lobes and left upper lobe. Thyroid gland: Normal. Tracheobronchial tree: Normal. Esophagus: Normal. Heart: Normal. Pericardium: Normal. Mediastinum: Normal. Lung Correa: normal. Pleural Spaces: Normal. Musculoskeletal: Normal. IMPRESSION: Positive for pulmonary embolus. These findings were discussed with Dr. Chandler in the emergency department at 1025 hrs.
[2017-10-01] MEDS: ATIVAN IV PRN ×9 (10:39→22:50)
[2017-10-01 11:27] LABS: INR 0.95 (0.87-1.13)
[2017-10-01 11:28] LABS: Partial Thromboplastin Time 25.2 Sec. (24.2-36.6)
--- NOTE | 2017-10-01 11:45 | History and Physical Report ---
History of Present Illness Date of examination: 10/01/17 Date of admission: 10/01/17 Chief complaint: Dyspnea on exertion History of present illness: This is a 32 year old man that has a history of recurrent pulmonary embolism and medical noncompliance. He admits to me that he has been admitted to multiple hospitals in the [facility] area for the same. He states he is unable to afford his medication. He states he is received free Eliquis and/or Xarelto for a year and is out of that benefit. He admits to alcohol abuse. He admits to a recent hospitalization but is very vague and essentially unwilling to tell me which hospital and when he was discharged. It might have been an [facility] and it might have been a town he states he will not say exactly when he left the hospital. He still has a recent hospital armband. He is here today because he has dyspnea on exertion. He does not complain of chest pain. However he does complain of diffuse abdominal pain and states he knows he has pancreatitis. He is complaining that a nurse did not come and do a "midline" IV catheter immediately when he arrives and before I came. 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 Obviously he has been rather demanding to the nursing staff who has tried their best to obtain intravenous access. The patient has had multiple central lines in the past. In addition he has an IVC filter. He denies being on any type of anticoagulants at this time. Past History Past Medical History: anemia, hypertension, pulmonary embolism Past Surgical History: No surgical history Social history: smoking, alcohol abuse. denies: prescription drug abuse Medications and Allergies Allergies Allergy/AdvReac Type Severity Reaction Status Date / Time tomato Allergy Unknown Verified 10/01/17 15:30 ziprasidone HCl [From Geodon] Allergy Unknown Verified 10/19/14 01:43 ziprasidone mesylate Allergy Unknown Verified 10/19/14 01:43 [From Geodon] Home Medications Medication Instructions Recorded Confirmed Last Taken Type Esomeprazole Magnesium [NexIUM] 20 mg PO QDAY #30 tab 10/30/16 10/27/16 Rx Folic Acid [Folvite] 1 mg PO QDAY #30 tablet 10/30/16 08/04/17 09:00 Rx Klonopin 1 mg PO BID #14 10/30/16 08/04/17 21:00 Rx Mometasone Furoate [Nasonex] 2 spray NS BID #1 spray.pump 10/30/16 08/04/17 Rx Nicotine [Habitrol] 14 mg TD QDAY #14 patch 10/30/16 2 Months Ago Rx ~08/04/17 14 Oxycodone HCl/Acetaminophen 1 each PO Q6HR PRN #14 tablet 10/30/16 08/04/17 18: 00 Rx [Percocet 10/325 mg] Rivaroxaban [Xarelto] 20 mg PO QDAY #30 tablet 10/30/16 08/04/17 17:00 Rx Thiamine [Vitamin B-1] 100 mg PO DAILY #30 tablet 10/30/16 09/01/17 21:00 Rx Active Meds: Active Medications Piperacillin Sod/Tazobactam Sod (Zosyn/Ns 4.5gm/100ml) 4.5 gm in 100 mls @ 200 mls/hr IV ONCE TAYLER Vancomycin HCl 1,250 mg/ (Sodium Chloride) 262.5 mls @ 175 mls/hr IV Q12H TAYLER Lorazepam (Ativan) 2 mg IV Q1HR PRN PRN Reason: CIWA-Ar 8-15 Lorazepam (Ativan) 4 mg IV Q1HR PRN PRN Reason: CIWA-Ar 16-25 Last Admin: 10/01/17 11:37 Dose: 4 mg Lorazepam (Ativan) 4 mg IV Q15MIN PRN PRN Reason: CIWA-Ar >25 Vancomycin HCl (Vancomycin Pharmacy To Dose) 1 each IV PKCONSULT TAYLER; Protocol Review of Systems Constitutional: no weight gain, no fever, no anorexia Ears, nose, mouth and throat: no ear pain, no ear discharge, no tinnitis, no decreased hearing Cardiovascular: shortness of breath, no chest pain, no orthopnea, no palpitations Respiratory: cough, shortness of breath, dyspnea on exertion Gastrointestinal: abdominal pain, nausea, no vomiting, no diarrhea Genitourinary Male: no dysuria, no hematuria, no flank pain Musculoskeletal: no neck stiffness, no neck pain, no shooting arm pain, no arm numbness/tingling Integumentary: no deferred, no rash, no pruritis Neurological: no transient paralysis, no paralysis, no weakness, no parathesias Psychiatric: no anxiety, no memory loss, no change in sleep habits, no sleep disturbances Endocrine: no cold intolerance, no heat intolerance, no polyphagia, no excessive thirst Hematologic/Lymphatic: no easy bruising, no easy bleeding Allergic/Immunologic: no urticaria, no allergic rhinitis Exam - Constitutional Vitals: Temp Pulse Resp BP Pulse Ox 100.1 F H 124 H 13 141/77 99 10/01/17 06:37 10/01/17 07:00 10/01/17 07:00 10/01/17 07:00 10/01/17 07:00 General appearance: Present: no acute distress, well-nourished - EENT Eyes: Present: PERRL - Neck Neck: Present: supple, normal ROM - Respiratory Respiratory effort: normal Respiratory: bilateral: CTA - Cardiovascular Heart Sounds: Present: S1 & S2. Absent: rub, click - Extremities Extremities: pulses symmetrical, No edema Peripheral Pulses: within normal limits - Abdominal General gastrointestinal: Present: soft, non-tender, non-distended, normal bowel sounds Male genitourinary: Present: normal - Integumentary Integumentary: Present: clear, warm, dry - Musculoskeletal Musculoskeletal: gait normal, strength equal bilaterally - Psychiatric Psychiatric: appropriate mood/affect, intact judgment & insight - Neurologic Neurologic: CNII-XII intact, moves all extremities Results - Labs CBC & Chem 7: 10/02/17 11:21 10/02/17 11:21 Labs: Abnormal lab results 10/01/17 10/01/17 10/01/17 Range/Units 06:54 06:54 06:54 Hgb 10.7 L (11.8-15.2) gm/dl Hct 32.7 L (35.5-45.6) % MCV 83 L (84-94) fl MCH 27 L (28-32) pg RDW 22.9 H (13.2-15.2) % Plt Count 131 L (140-440) K/mm3 [place] % (Auto) 7.7 H (0.0-7.3) % Eos % (Auto) 4.8 H (0.0-4.3) % PT 11.9 L (12.2-14.9) Sec. INR 0.84 L (0.87-1.13) APTT > 240.0 H* (24.2-36.6) Sec. D-Dimer 527.54 H (0-234) ng/mlDDU Carbon Dioxide 21 L (22-30) mmol/L Creatinine 0.6 L (0.8-1.5) mg/dL Total Creatine Kinase (55-170) units/L 10/01/18 Range/Units 06:54 Hgb (11.8-15.2) gm/dl Hct (35.5-45.6) % MCV (84-94) fl MCH (28-32) pg RDW (13.2-15.2) % Plt Count (140-440) K/mm3 [place] % (Auto) (0.0-7.3) % Eos % (Auto) (0.0-4.3) % PT (12.2-14.9) Sec. INR (0.87-1.13) APTT (24.2-36.6) Sec. D-Dimer (0-234) ng/mlDDU Carbon Dioxide (22-30) mmol/L Creatinine (0.8-1.5) mg/dL Total Creatine Kinase 290 H (55-170) units/L Assessment and Plan Acute on chronic PE Microcytic anemia HTN H/o pancreatitis ETOH abuse Pt is Full code Plan Admit to Tele Heparin Anemia w/u Optimize BP control CT abdomen and pelvis was normal DVT and GI PPx on heparin for PE. sloan commspring cota
[2017-10-01] MEDS ORDERED: HEPARIN 10,000 UNITS/10 ML IV ONE (13:00)
[2017-10-01 13:05] LABS: Hematocrit 29.7 % (35.5-45.6); Hemoglobin 9.6 gm/dl (11.8-15.2)
[2017-10-01] MEDS: HEPARIN/ 0.45% NACL-25,000 UNIT/500 ML 25,000 UNIT/500 ML BAG IV SCH (13:06)
[2017-10-01 13:17] LABS: INR 0.92 (0.87-1.13)
[2017-10-01 13:18] LABS: Partial Thromboplastin Time 26.9 Sec. (24.2-36.6)
[2017-10-01 13:24] LABS: Iron 28 ug/dL (49-181); Total Iron Binding Capacity 387 mcg/dL (250-450)
[2017-10-01] MEDS ORDERED: ATIVAN ONE ×2 (13:33)
[2017-10-01] MEDS: MORPHINE IV PRN ×3 (14:07→22:51)
[2017-10-01] MEDS ORDERED: VANCOMYCIN 1,250 MG in NACL 0.9% 250ML 250 ML IV SCH (22:00)
[2017-10-02] MEDS: ATIVAN IV PRN ×14 (00:25→22:48)
[2017-10-02] MEDS: PERCOCET 5/325 PO PRN ×4 (01:05→22:48)
[2017-10-02] MEDS: MORPHINE IV PRN ×5 (03:39→20:37)
[2017-10-02] MEDS ORDERED: PEPTO BISMOL PO ONE (03:56)
[2017-10-02] MEDS ORDERED: PERCOCET 5/325 PO ONE (06:16)
[2017-10-02] MEDS: HEPARIN/ 0.45% NACL-25,000 UNIT/500 ML 25,000 UNIT/500 ML BAG IV SCH (08:34)
[2017-10-02 11:31] LABS: Basophils % (Auto) 0.6 % (0.0-1.8); Eosinophils # (Auto) 0.3 K/mm3 (0.0-0.4); Eosinophils % (Auto) 5.3 % (0.0-4.3); Hematocrit 26.9 % (35.5-45.6); Hemoglobin 8.8 gm/dl (11.8-15.2); Lymphocytes # (Auto) 1.1 K/mm3 (1.2-5.4); Lymphocytes % (Auto) 16.7 % (13.4-35.0); Mean Corpuscular HGB Conc 33 % (32-34); Mean Corpuscular Hemoglobin 27 pg (28-32); Mean Corpuscular Volume 83 fl (84-94); Monocytes # (Auto) 0.5 K/mm3 (0.0-0.8); Monocytes % (Auto) 8.2 % (0.0-7.3); Platelet Count 193 K/mm3 (140-440); Red Blood Count 3.24 M/mm3 (3.65-5.03)
[2017-10-02 11:53] LABS: BUN/Creatinine Ratio 13; Blood Urea Nitrogen 9 mg/dL (9-20); Calcium 8.9 mg/dL (8.4-10.2); Hemolysis Index 0
--- NOTE | 2017-10-02 12:15 | Progress Note ---
Assessment and Plan Acute on chronic PE Microcytic anemia HTN H/o pancreatitis ETOH abuse Pt is Full code Plan Admit to Tele Heparin On /ciwa protocol with ativan Anemia w/u Optimize BP control CT abdomen and pelvis was normal. No acute pancreatitis DVT and GI PPx on heparin for PE. sloan cota Subjective Date of service: 10/02/17 Principal diagnosis: acute on chronic PE Interval history: Pt said he is having some alcohol withdrawal symptoms while sitting up in bed. Requesting more pain meds Objective - Constitutional Vitals: Vital Signs - 12hr 10/02/17 10/02/17 10/02/17 01:05 04:00 06:26 Temperature 97.8 F Pulse Rate 103 H Respiratory 20 20 18 Rate Blood Pressure 145/81 [Right] O2 Sat by Pulse 97 Oximetry 10/02/17 10/02/17 07:05 09:56 Temperature 97.9 F Pulse Rate 105 H Respiratory 16 20 Rate Blood Pressure 151/93 [Right] O2 Sat by Pulse 93 Oximetry General appearance: Present: no acute distress, well-nourished - EENT Eyes: PERRL, EOM intact Ears: bilateral: normal - Neck Neck: supple, normal ROM - Respiratory Respiratory effort: normal Respiratory: bilateral: CTA - Cardiovascular Rhythm: regular Heart Sounds: Present: S1 & S2. Absent: gallop, rub Extremities: pulses intact, No edema, normal color, Full ROM - Gastrointestinal General gastrointestinal: Present: soft, non-tender, non-distended, normal bowel sounds - Integumentary Integumentary: clear, warm, dry - Musculoskeletal Musculoskeletal: 1, strength equal bilaterally - Neurologic Neurologic: moves all extremities - Psychiatric Psychiatric: memory intact, appropriate mood/affect, intact judgment & insight - Labs CBC & Chem 7: 10/02/17 11:21 10/02/17 11:21 Labs: Abnormal lab results 10/01/17 10/01/17 10/01/17 Range/Units 12:53 12:53 20:18 RBC (3.65-5.03) M/mm3 Hgb 9.6 L (11.8-15.2) gm/dl Hct 29.7 L (35.5-45.6) % MCV (84-94) fl MCH (28-32) pg RDW (13.2-15.2) % [place] % (Auto) (0.0-7.3) % Eos % (Auto) (0.0-4.3) % Lymph # (1.2-5.4) K/mm3 Heparin Anti-Xa Level 0.14 L (0.3-0.7) U.I./ml Creatinine (0.8-1.5) mg/dL Iron 28 L (49-181) ug/dL 10/02/17 10/02/17 Range/Units 11:21 11:21 RBC 3.24 L (3.65-5.03) M/mm3 Hgb 8.8 L (11.8-15.2) gm/dl Hct 26.9 L (35.5-45.6) % MCV 83 L (84-94) fl MCH 27 L (28-32) pg RDW 23.0 H (13.2-15.2) % [place] % (Auto) 8.2 H (0.0-7.3) % Eos % (Auto) 5.3 H (0.0-4.3) % Lymph # 1.1 L (1.2-5.4) K/mm3 Heparin Anti-Xa Level (0.3-0.7) U.I./ml Creatinine 0.7 L (0.8-1.5) mg/dL Iron (49-181) ug/dL
[2017-10-03] MEDS: ATIVAN IV PRN ×5 (00:02→09:28)
[2017-10-03] MEDS: MORPHINE IV PRN ×3 (01:30→09:29)
[2017-10-03] MEDS: HEPARIN/ 0.45% NACL-25,000 UNIT/500 ML 25,000 UNIT/500 ML BAG IV SCH (01:31)
[2017-10-03] MEDS: PERCOCET 5/325 PO PRN ×5 (04:43→22:46)
[2017-10-03 06:52] LABS: Basophils % (Auto) 0.7 % (0.0-1.8); Eosinophils # (Auto) 0.4 K/mm3 (0.0-0.4); Eosinophils % (Auto) 7.6 % (0.0-4.3); Hematocrit 29.5 % (35.5-45.6); Hemoglobin 9.5 gm/dl (11.8-15.2); Lymphocytes # (Auto) 1.9 K/mm3 (1.2-5.4); Lymphocytes % (Auto) 34.3 % (13.4-35.0); Mean Corpuscular HGB Conc 32 % (32-34); Mean Corpuscular Hemoglobin 27 pg (28-32); Mean Corpuscular Volume 83 fl (84-94); Monocytes # (Auto) 0.5 K/mm3 (0.0-0.8); Monocytes % (Auto) 9.6 % (0.0-7.3); Platelet Count 205 K/mm3 (140-440); Red Blood Count 3.55 M/mm3 (3.65-5.03)
[2017-10-03 06:54] LABS: Red Cell Distribution Width 22.8 % (13.2-15.2)
[2017-10-03 07:17] LABS: BUN/Creatinine Ratio 12; Blood Urea Nitrogen 7 mg/dL (9-20); Calcium 8.9 mg/dL (8.4-10.2); Hemolysis Index 2
[2017-10-03] MEDS ORDERED: NORMODYNE PO SCH ×2 (10:00→11:00)
[2017-10-03] MEDS: NORMODYNE PO SCH ×2 (11:48→21:51)
[2017-10-03] MEDS: NORVASC PO SCH (11:48)
[2017-10-03] MEDS ORDERED: PERCOCET 5/325 PO PRN (12:09)
--- NOTE | 2017-10-03 15:26 | Progress Note ---
Assessment and Plan Assessment and plan: Recurrent acute PE 2/2 medication noncompliance -Patient will not be able to enroll in the eliquis or xarelto program due to noncompliance. -We will discontinue the heparin drip and start him on therapeutic Lovenox with Coumadin. Chronic Microcytic anemia -H&H stable Uncontrolled HTN -Amlodipine and labetalol as well as when necessary hydralazine started. History of ETOH abuse -No evidence of alcohol withdrawal. -We will discontinue the Ativan due to his drug-seeking behavior Chronic pain syndrome. -Continue when necessary Percocet and discontinued the morphine. -We will add prn xanax Disposition: patient can be discharged when his INR level becomes therapeutic. Spent more than 30 minutes discussing with the patient about his management. History Interval history: Patient is a 32-year-old male admitted for recurrent PE. He also has history of drug-seeking behavior. I did get multiple calls from the nurses about his behavioral disturbances. Hospitalist Physical - Constitutional Vitals: Temp Pulse Resp BP Pulse Ox 97.3 F L 131 H 20 180/116 100 10/03/17 12:38 10/03/17 12:38 10/03/17 12:38 10/03/17 12:38 10/03/17 12:38 General appearance: Present: no acute distress, well-nourished - EENT Eyes: Present: PERRL, EOM intact ENT: hearing intact - Neck Neck: Present: supple - Respiratory Respiratory effort: normal Respiratory: bilateral: CTA - Cardiovascular Rhythm: regular Heart Sounds: Present: S1 & S2 - Extremities Extremities: No edema - Abdominal General gastrointestinal: soft, non-tender, normal bowel sounds - Neurologic Neurologic: CNII-XII intact Results - Labs CBC & Chem 7: 10/03/17 06:20 10/03/17 06:20 Labs: Laboratory Last Values WBC 5.6 K/mm3 (4.5-11.0) 10/03/17 06:20 RBC 3.55 M/mm3 (3.65-5.03) L 10/03/17 06:20 Hgb 9.5 gm/dl (11.8-15.2) L 10/03/17 06:20 Hct 29.5 % (35.5-45.6) L 10/03/17 06:20 MCV 83 fl (84-94) L 10/03/17 06:20 MCH 27 pg (28-32) L 10/03/17 06:20 MCHC 32 % (32-34) 10/03/17 06:20 RDW 22.8 % (13.2-15.2) H 10/03/17 06:20 Plt Count 205 K/mm3 (140-440) 10/03/17 06:20 Lymph % (Auto) 34.3 % (13.4-35.0) 10/03/17 06:20 [place] % (Auto) 9.6 % (0.0-7.3) H 10/03/17 06:20 Eos % (Auto) 7.6 % (0.0-4.3) H 10/03/17 06:20 Baso % (Auto) 0.7 % (0.0-1.8) 10/03/17 06:20 Lymph # 1.9 K/mm3 (1.2-5.4) 10/03/17 06:20 [place] # 0.5 K/mm3 (0.0-0.8) 10/03/17 06:20 Eos # 0.4 K/mm3 (0.0-0.4) 10/03/17 06:20 Baso # 0.0 K/mm3 (0.0-0.1) 10/03/17 06:20 Seg Neutrophils % 47.8 % (40.0-70.0) 10/03/17 06:20 Seg Neutrophils # 2.7 K/mm3 (1.8-7.7) 10/03/17 06:20 PT 12.8 Sec. (12.2-14.9) 10/01/17 12:53 INR 0.92 (0.87-1.13) 10/01/17 12:53 APTT 26.9 Sec. (24.2-36.6) 10/01/17 12:53 D-Dimer 527.54 ng/mlDDU (0-234) H 10/01/17 06:54 Heparin Anti-Xa Level 0.24 U.I./ml (0.3-0.7) L 10/03/17 12:38 Sodium 141 mmol/L (137-145) 10/03/17 06:20 Potassium 4.0 mmol/L (3.6-5.0) 10/03/17 06:20 Chloride 102.5 mmol/L (98-107) 10/03/17 06:20 Carbon Dioxide 25 mmol/L (22-30) 10/03/17 06:20 Anion Gap 18 mmol/L 10/03/17 06:20 BUN 7 mg/dL (9-20) L 10/03/17 06:20 Creatinine 0.6 mg/dL (0.8-1.5) L 10/03/17 06:20 Estimated GFR > 60 ml/min 10/03/17 06:20 BUN/Creatinine Ratio 12 % 10/03/17 06:20 Glucose 88 mg/dL (75-100) 10/03/17 06:20 Lactic Acid 1.80 mmol/L (0.7-2.0) 10/01/17 08:59 Calcium 8.9 mg/dL (8.4-10.2) 10/03/17 06:20 Iron 28 ug/dL (49-181) L 10/01/17 12:53 TIBC 387 mcg/dL (250-450) 10/01/17 12:53 Ferritin 28.2 ng/mL (13.0-400.0) 10/01/17 12:53 Total Bilirubin 0.60 mg/dL (0.1-1.2) 10/01/17 06:54 AST 24 units/L (5-40) 10/01/17 06:54 ALT 14 units/L (7-56) 10/01/17 06:54 Alkaline Phosphatase 60 units/L (35-129) 10/01/17 06:54 Total Creatine Kinase 290 units/L (55-170) H 10/01/17 06:54 CK-MB (CK-2) 2.5 ng/mL (0.0-4.0) 10/01/17 06:54 CK-MB (CK-2) Rel Index 0.8 (0-4) 10/01/17 06:54 NT-Pro-B Natriuret Pep 6.29 pg/mL (0-450) 10/01/17 06:54 Total Protein 7.6 g/dL (6.3-8.2) 10/01/17 06:54 Albumin 4.3 g/dL (3.9-5) 10/01/17 06:54 Albumin/Globulin Ratio 1.3 % 10/01/17 06:54 Lipase 36 units/L (13-60) 10/01/17 06:54 Vitamin B12 474.4 pg/mL (211-911) 10/01/17 12:53 Folate 17.72 ng/mL (7.3-26.0) 10/01/17 12:53 Urine Color Yellow (Yellow) 10/01/17 07:32 Urine Turbidity Clear (Clear) 10/01/17 07:32 Urine pH 5.0 (5.0-7.0) 10/01/17 07:32 Ur Specific [place] 1.020 (1.003-1.030) 10/01/17 07:32 Urine Protein 30 mg/dl mg/dL (Negative) 10/01/17 07:32 Urine Glucose (UA) Neg mg/dL (Negative) 10/01/17 07:32 Urine Ketones Neg mg/dL (Negative) 10/01/17 07:32 Urine Blood Neg (Negative) 10/01/17 07:32 Urine Nitrite Neg (Negative) 10/01/17 07:32 Urine Bilirubin Neg (Negative) 10/01/17 07:32 Urine Urobilinogen < 2.0 mg/dL (<2.0) 10/01/17 07:32 Ur Leukocyte Esterase Neg (Negative) 10/01/17 07:32 Urine WBC (Auto) 1.0 /HPF (0.0-6.0) 10/01/17 07:32 Urine RBC (Auto) 1.0 /HPF (0.0-6.0) 10/01/17 07:32 Urine Bacteria (Auto) 1+ /HPF (Negative) 10/01/17 07:32 Urine Opiates Screen Presumptive negative 10/01/17 07:32 Urine Methadone Screen Presumptive negative 10/01/17 07:32 Ur Barbiturates Screen Presumptive negative 10/01/17 07:32 Ur Phencyclidine Scrn Presumptive negative 10/01/17 07:32 Ur Amphetamines Screen Presumptive negative 10/01/17 07:32 U Benzodiazepines Scrn Presumptive positive 10/01/17 07:32 Urine Cocaine Screen Presumptive negative 10/01/17 07:32 U Marijuana (THC) Screen Presumptive negative 10/01/17 07:32 Drugs of Abuse Note Disclamer 10/01/17 07:32 Plasma/Serum Alcohol < 0.01 % (0-0.07) 10/01/17 10:20 Blood Type O POSITIVE 10/01/17 08:50 Antibody Screen Negative 10/01/17 08:50
[2017-10-03] MEDS: XANAX PO PRN (18:34)
[2017-10-03] MEDS: APRESOLINE IV PRN ×2 (18:34→22:47)
[2017-10-03 20:35] LABS: INR 0.79 (0.87-1.13)
[2017-10-03] MEDS: COUMADIN PO SCH (21:47)
[2017-10-03] MEDS: LOVENOX SUB-Q SCH (21:48)
[2017-10-03] MEDS ORDERED: ELIQUIS PO SCH (22:00)
[2017-10-04] MEDS: PERCOCET 5/325 PO PRN ×5 (05:48→22:28)
[2017-10-04] MEDS: XANAX PO PRN ×2 (05:48→13:47)
[2017-10-04 06:23] LABS: Basophils % (Auto) 0.4 % (0.0-1.8); Eosinophils # (Auto) 0.3 K/mm3 (0.0-0.4); Eosinophils % (Auto) 5.8 % (0.0-4.3); Hematocrit 28.7 % (35.5-45.6); Hemoglobin 9.5 gm/dl (11.8-15.2); Lymphocytes # (Auto) 1.9 K/mm3 (1.2-5.4); Lymphocytes % (Auto) 32.3 % (13.4-35.0); Mean Corpuscular HGB Conc 33 % (32-34); Mean Corpuscular Hemoglobin 27 pg (28-32); Mean Corpuscular Volume 83 fl (84-94); Monocytes # (Auto) 0.6 K/mm3 (0.0-0.8); Platelet Count 202 K/mm3 (140-440); Red Blood Count 3.47 M/mm3 (3.65-5.03)
[2017-10-04 06:25] LABS: Red Cell Distribution Width 22.8 % (13.2-15.2)
[2017-10-04 06:31] LABS: INR 0.82 (0.87-1.13)
[2017-10-04 06:53] LABS: BUN/Creatinine Ratio 14; Blood Urea Nitrogen 10 mg/dL (9-20); Calcium 9.1 mg/dL (8.4-10.2); Hemolysis Index 0
--- NOTE | 2017-10-04 08:51 | Progress Note ---
Assessment and Plan Acute on chronic PE Microcytic anemia HTN H/o pancreatitis ETOH abuse Pt is Full code Plan Heparin On /ciwa protocol with ativan Anemia w/u Optimize BP control CT abdomen and pelvis was normal. No acute pancreatitis DVT and GI PPx on heparin for PE. will maliha cota disposition: Obtain Free Eliquis and D/c home Subjective Principal diagnosis: acute on chronic PE Interval history: Pt said he is having some alcohol withdrawal symptoms while sitting up in bed. Requesting more pain meds. no fever, no shakes Objective - Constitutional Vitals: Vital Signs - 12hr 10/03/17 10/03/17 10/04/17 21:14 22:00 00:59 Temperature 98.6 F Pulse Rate 110 H 114 H Pulse Rate [ 120 H Right Radial] Respiratory 18 22 20 Rate Blood Pressure 151/110 109/61 [Right] O2 Sat by Pulse 99 99 Oximetry 10/04/17 06:57 Temperature 98.3 F Pulse Rate 109 H Pulse Rate [ Right Radial] Respiratory 20 Rate Blood Pressure 115/73 [Right] O2 Sat by Pulse 98 Oximetry General appearance: Present: no acute distress, well-nourished - EENT Eyes: PERRL, EOM intact Ears: bilateral: normal - Neck Neck: supple, normal ROM - Respiratory Respiratory effort: normal Respiratory: bilateral: CTA - Cardiovascular Rhythm: regular Heart Sounds: Present: S1 & S2. Absent: gallop, rub Extremities: pulses intact, No edema, normal color, Full ROM - Gastrointestinal General gastrointestinal: Present: soft, non-tender, non-distended, normal bowel sounds - Genitourinary Male genitourinary: normal - Integumentary Integumentary: clear, warm, dry - Musculoskeletal Musculoskeletal: 1, strength equal bilaterally - Neurologic Neurologic: moves all extremities - Psychiatric Psychiatric: memory intact, appropriate mood/affect, intact judgment & insight - Labs CBC & Chem 7: 10/04/17 05:49 10/04/17 05:49 Labs: Abnormal lab results 10/03/17 10/03/17 10/04/17 Range/Units 12:38 Unknown 05:49 RBC 3.47 L (3.65-5.03) M/mm3 Hgb 9.5 L (11.8-15.2) gm/dl Hct 28.7 L (35.5-45.6) % MCV 83 L (84-94) fl MCH 27 L (28-32) pg RDW 22.8 H (13.2-15.2) % [place] % (Auto) 10.0 H (0.0-7.3) % Eos % (Auto) 5.8 H (0.0-4.3) % PT 11.3 L (12.2-14.9) Sec. INR 0.79 L (0.87-1.13) Heparin Anti-Xa Level 0.24 L (0.3-0.7) U.I./ml Creatinine (0.8-1.5) mg/dL 10/04/17 10/04/17 Range/Units 05:49 05:49 RBC (3.65-5.03) M/mm3 Hgb (11.8-15.2) gm/dl Hct (35.5-45.6) % MCV (84-94) fl MCH (28-32) pg RDW (13.2-15.2) % [place] % (Auto) (0.0-7.3) % Eos % (Auto) (0.0-4.3) % PT 11.7 L (12.2-14.9) Sec. INR 0.82 L (0.87-1.13) Heparin Anti-Xa Level (0.3-0.7) U.I./ml Creatinine 0.7 L (0.8-1.5) mg/dL
[2017-10-04] MEDS: LOVENOX SUB-Q SCH ×2 (09:53→22:27)
[2017-10-04] MEDS: NORMODYNE PO SCH ×2 (09:54→22:28)
[2017-10-04] MEDS: NORVASC PO SCH (09:54)
[2017-10-04] MEDS: COUMADIN PO SCH (18:14)
[2017-10-05] MEDS: PERCOCET 5/325 PO PRN ×6 (02:46→22:45)
[2017-10-05] MEDS: XANAX PO PRN ×2 (06:28→14:30)
[2017-10-05 06:38] LABS: Basophils # (Auto) 0.1 K/mm3 (0.0-0.1); Basophils % (Auto) 1.2 % (0.0-1.8); Eosinophils # (Auto) 0.3 K/mm3 (0.0-0.4); Eosinophils % (Auto) 7.6 % (0.0-4.3); Lymphocytes # (Auto) 1.9 K/mm3 (1.2-5.4); Lymphocytes % (Auto) 42.1 % (13.4-35.0); Mean Corpuscular HGB Conc 32 % (32-34); Mean Corpuscular Hemoglobin 27 pg (28-32); Mean Corpuscular Volume 84 fl (84-94); Monocytes # (Auto) 0.5 K/mm3 (0.0-0.8); Monocytes % (Auto) 10.9 % (0.0-7.3); Platelet Count 206 K/mm3 (140-440); Red Blood Count 3.33 M/mm3 (3.65-5.03)
[2017-10-05 06:41] LABS: Red Cell Distribution Width 23.1 % (13.2-15.2)
[2017-10-05 06:48] LABS: INR 0.87 (0.87-1.13)
[2017-10-05 07:01] LABS: BUN/Creatinine Ratio 14; Blood Urea Nitrogen 10 mg/dL (9-20); Calcium 9.1 mg/dL (8.4-10.2); Hemolysis Index 2
[2017-10-05] MEDS: LOVENOX SUB-Q SCH ×2 (10:05→22:39)
[2017-10-05] MEDS: NORVASC PO SCH (10:05)
[2017-10-05] MEDS: NORMODYNE PO SCH ×2 (10:06→22:41)
--- NOTE | 2017-10-05 10:14 | Progress Note ---
Assessment and Plan Acute on chronic PE Microcytic anemia HTN H/o pancreatitis ETOH abuse Pt is Full code Plan Heparin. awating oral anticoagulation tx. pt has no payer source and has exhausted one year free sample program for Eliquis On /ciwa protocol with ativan Optimized BP control CT abdomen and pelvis was normal. No acute pancreatitis DVT and GI PPx on heparin for PE. will commnece cipriano Disposition: Obtain Free Eliquis and D/c home Subjective Date of service: 10/05/17 Principal diagnosis: acute on chronic PE Interval history: Pt said he is having some alcohol withdrawal symptoms while sitting up in bed. Requesting more pain meds. no fever, no shakes. no n/v Objective - Constitutional Vitals: Vital Signs - 12hr 10/05/17 10/05/17 10/05/17 01:10 07:32 08:37 Temperature 97.9 F 97.9 F Pulse Rate 89 95 H 89 Respiratory 20 19 19 Rate Blood Pressure 135/78 Blood Pressure 142/70 135/78 [Right] O2 Sat by Pulse 97 93 97 Oximetry General appearance: Present: no acute distress, well-nourished - EENT Eyes: PERRL, EOM intact - Neck Neck: supple, normal ROM - Respiratory Respiratory effort: normal Respiratory: bilateral: CTA - Breasts Breasts: normal - Cardiovascular Rhythm: regular Heart Sounds: Present: S1 & S2. Absent: gallop, rub Extremities: pulses intact, No edema, normal color, Full ROM - Gastrointestinal General gastrointestinal: Present: soft, non-tender, non-distended, normal bowel sounds - Genitourinary Male genitourinary: normal - Integumentary Integumentary: clear, warm, dry - Musculoskeletal Musculoskeletal: 1, strength equal bilaterally - Neurologic Neurologic: moves all extremities - Psychiatric Psychiatric: memory intact, appropriate mood/affect, intact judgment & insight - Labs CBC & Chem 7: 10/05/17 Unknown 10/05/17 Unknown Labs: Abnormal lab results 10/05/17 10/05/17 Range/Units Unknown Unknown RBC 3.33 L (3.65-5.03) M/mm3 Hgb 9.0 L (11.8-15.2) gm/dl Hct 28.0 L (35.5-45.6) % MCH 27 L (28-32) pg RDW 23.1 H (13.2-15.2) % Lymph % (Auto) 42.1 H (13.4-35.0) % [place] % (Auto) 10.9 H (0.0-7.3) % Eos % (Auto) 7.6 H (0.0-4.3) % Seg Neutrophils % 38.2 L (40.0-70.0) % Seg Neutrophils # 1.7 L (1.8-7.7) K/mm3 Creatinine 0.7 L (0.8-1.5) mg/dL
[2017-10-05] MEDS ORDERED: TRIPLE ANTIBIOTIC TP ONE ×2 (13:12→14:23)
--- NOTE | 2017-10-05 14:49 | Discharge Summary ---
Providers - Providers Date of Admission: 10/01/17 13:18 Date of discharge: 10/05/17 Attending physician: CONCEPCIÓN MCCLOUD Primary care physician: JANIYA DUVALL Hospitalization Condition: Stable Exam - Constitutional Vitals: Temp Pulse Resp BP Pulse Ox 98.4 F 94 H 16 124/86 100 10/05/17 12:05 10/05/17 12:05 10/05/17 12:05 10/05/17 12:05 10/05/17 12:05 Plan Follow up with: JANIYA DUVALL MD [Primary Care Provider] - 3-5 Days Forms: Warfarin Discharge Instruction Prescriptions: ALPRAZolam [Xanax TAB] 1 mg PO Q8H PRN #30 tablet PRN Reason: Anxiety amLODIPine [Norvasc] 10 mg PO QDAY #30 tablet Apixaban [Eliquis] 5 mg PO BID #60 tablet clonazePAM [Klonopin] 1 mg PO BID #60 tablet Esomeprazole Magnesium [NexIUM] 20 mg PO QDAY #30 tab Folic Acid [Folvite] 1 mg PO QDAY #30 tablet Klonopin 1 mg PO BID #14 Labetalol [Normodyne TAB] 100 mg PO BID #60 tablet Mometasone Furoate [Nasonex] 2 spray NS BID #1 spray.pump Nicotine [Habitrol] 14 mg TD QDAY #14 patch Oxycodone HCl/Acetaminophen [Percocet 10/325 mg] 1 each PO Q6HR PRN #14 tablet PRN Reason: Pain Rivaroxaban [Xarelto] 20 mg PO QDAY #30 tablet Thiamine [Vitamin B-1] 100 mg PO DAILY #30 tablet
[2017-10-05] MEDS: COUMADIN PO SCH (17:00)
[2017-10-06] MEDS: PERCOCET 5/325 PO PRN ×5 (03:14→21:36)
[2017-10-06] MEDS: XANAX PO PRN ×2 (08:06→16:42)
--- NOTE | 2017-10-06 09:08 | Progress Note ---
Assessment and Plan Acute on chronic PE Microcytic anemia HTN H/o pancreatitis ETOH abuse Pt is Full code Plan Heparin. awating oral anticoagulation tx. pt has no payer source and has exhausted one year free sample program for Eliquis On /ciwa protocol with ativan Optimized BP control CT abdomen and pelvis was normal. No acute pancreatitis DVT and GI PPx on heparin for PE and pepcid for GI ppx Disposition: Obtain Free Eliquis and D/c home Subjective Date of service: 10/06/17 Principal diagnosis: no new complaintacute on chronic PE Interval history: Pt said he feeling better. Waiting for oral anticoagulant . no shortness of breath . no n/v Objective - Constitutional Vitals: Vital Signs - 12hr 10/05/17 10/05/17 21:36 22:41 Temperature 98.5 F Pulse Rate 103 H 94 H Respiratory 20 Rate Blood Pressure 123/67 146/82 O2 Sat by Pulse 98 Oximetry General appearance: Present: no acute distress, well-nourished - EENT Eyes: PERRL, EOM intact - Neck Neck: supple, normal ROM - Respiratory Respiratory effort: normal Respiratory: bilateral: CTA - Cardiovascular Rhythm: regular Heart Sounds: Present: S1 & S2. Absent: gallop, rub Extremities: pulses intact, No edema, normal color, Full ROM - Gastrointestinal General gastrointestinal: Present: soft, non-tender, non-distended, normal bowel sounds - Integumentary Integumentary: clear, warm, dry - Musculoskeletal Musculoskeletal: 1, strength equal bilaterally - Neurologic Neurologic: moves all extremities - Psychiatric Psychiatric: memory intact, appropriate mood/affect, intact judgment & insight - Labs CBC & Chem 7: 10/05/17 Unknown 10/05/17 Unknown
[2017-10-06 10:17] LABS: INR 0.97 (0.87-1.13)
[2017-10-06] MEDS: LOVENOX SUB-Q SCH ×2 (10:56→21:39)
[2017-10-06] MEDS: NORMODYNE PO SCH ×2 (10:58→21:38)
[2017-10-06] MEDS: NORVASC PO SCH (10:59)
[2017-10-06] MEDS: COUMADIN PO SCH ×2 (16:43)
[2017-10-07] MEDS: PERCOCET 5/325 PO PRN ×5 (01:32→20:13)
--- NOTE | 2017-10-07 01:48 | Discharge Summary ---
Providers - Providers Date of Admission: 10/01/17 13:18 Attending physician: TYREE RAYO MD 10/05/17 14:37 Consult to Mental Health [CONS] Urgent Reason For Exam: behavioral issues Place consult to:: Mental Health Notified:: yes Phone number called:: [phone] Primary care physician: JANIYA DUVALL Hospitalization Condition: Stable Hospital course: This is a 32 year old man that has a history of recurrent pulmonary embolism sp IVC filter and medical noncompliance because he could not afford medication, pw POTTER and abdominal pain, currenlty still abusing etoh . Patient was found to have acute on chronic PE due to noncompliance with anticoagulants. As patient is self-pay, transplant case manager was able to get authorization to obtain affordable eliquis for the patient. He was counseled about alcohol cessation and he was subsequently discharged. Diagnoses Acute on chronic PE Microcytic anemia HTN H/o pancreatitis ETOH abuse Pt is Full code Disposition: DC-01 TO HOME OR SELFCARE Time spent for discharge: 33 minutes Core Measure Documentation - Palliative Care Palliative Care/ Comfort Measures: Not Applicable - Core Measures Any of the following diagnoses?: DVT/PE - VTE Discharge Requirements Deep Vein Thrombosis/Pulmonary Embolism Present on Admission: Yes Has pt received <5 days of overlap therapy or INR<2.0: No Anticoagulant overlap therapy prescribed at discharge: No Contraindication No Overlap Therapy order at DC: Not Indicated Exam - Constitutional Vitals: Temp Pulse Resp BP Pulse Ox 98.7 F 84 16 140/72 100 10/06/17 21:03 10/06/17 21:38 10/06/17 21:03 10/06/17 21:38 10/06/17 21:03 General appearance: Present: no acute distress, well-nourished - EENT Eyes: Present: PERRL ENT: hearing intact, clear oral mucosa - Neck Neck: Present: supple, normal ROM - Respiratory Respiratory effort: normal Respiratory: bilateral: CTA - Cardiovascular Heart Sounds: Present: S1 & S2. Absent: rub, click - Extremities Extremities: pulses symmetrical, No edema Peripheral Pulses: within normal limits - Abdominal General gastrointestinal: Present: soft, non-tender, non-distended, normal bowel sounds Male genitourinary: Present: normal - Integumentary Integumentary: Present: clear, warm, dry - Musculoskeletal Musculoskeletal: gait normal, strength equal bilaterally - Psychiatric Psychiatric: appropriate mood/affect, intact judgment & insight - Neurologic Neurologic: CNII-XII intact, moves all extremities Plan Follow up with: JANIYA DUVALL MD [Primary Care Provider] - 3-5 Days Forms: Warfarin Discharge Instruction Prescriptions: ALPRAZolam [Xanax TAB] 1 mg PO Q8H PRN #30 tablet PRN Reason: Anxiety amLODIPine [Norvasc] 10 mg PO QDAY #30 tablet Apixaban [Eliquis] 5 mg PO BID #60 tablet clonazePAM [Klonopin] 1 mg PO BID #60 tablet Esomeprazole Magnesium [NexIUM] 20 mg PO QDAY #30 tab Folic Acid [Folvite] 1 mg PO QDAY #30 tablet Klonopin 1 mg PO BID #14 Labetalol [Normodyne TAB] 100 mg PO BID #60 tablet Mometasone Furoate [Nasonex] 2 spray NS BID #1 spray.pump Nicotine [Habitrol] 14 mg TD QDAY #14 patch Oxycodone HCl/Acetaminophen [Percocet 10/325 mg] 1 each PO Q6HR PRN #14 tablet PRN Reason: Pain Rivaroxaban [Xarelto] 20 mg PO QDAY #30 tablet Thiamine [Vitamin B-1] 100 mg PO DAILY #30 tablet
[2017-10-07 07:18] LABS: Hematocrit 30.2 % (35.5-45.6); Hemoglobin 9.7 gm/dl (11.8-15.2)
[2017-10-07] MEDS: XANAX PO PRN ×2 (07:20→15:36)
[2017-10-07 07:29] LABS: INR 1.08 (0.87-1.13)
[2017-10-07] MEDS: NORMODYNE PO SCH ×2 (11:06→22:17)
[2017-10-07] MEDS: NORVASC PO SCH (11:07)
[2017-10-07] MEDS: LOVENOX SUB-Q SCH ×2 (11:08→22:16)
[2017-10-07] MEDS: COUMADIN PO SCH ×2 (18:58→18:59)
[2017-10-08] MEDS: PERCOCET 5/325 PO PRN ×6 (00:32→23:29)
[2017-10-08] MEDS: XANAX PO PRN ×2 (06:19→15:03)
[2017-10-08 08:17] LABS: INR 1.14 (0.87-1.13)
[2017-10-08] MEDS: NORVASC PO SCH (10:23)
[2017-10-08] MEDS: NORMODYNE PO SCH ×2 (10:23→22:50)
[2017-10-08] MEDS: LOVENOX SUB-Q SCH ×2 (10:24→22:50)
--- NOTE | 2017-10-08 15:26 | Progress Note ---
Assessment and Plan Assessment and plan: Acute on chronic PE Microcytic anemia HTN H/o pancreatitis ETOH abuse Pt is Full code Plan Heparin. awating oral anticoagulation tx. pt has no payer source and has exhausted one year free sample program for Eliquis On /ciwa protocol with ativan Optimized BP control CT abdomen and pelvis was normal. No acute pancreatitis DVT and GI PPx on heparin for PE and pepcid for GI ppx Disposition: Obtain Free Eliquis and D/c home History Interval history: Review of systems Constitutional: No fevers, no malaise, no joint pains CVS: No chest pain, no orthopnea, no dyspnea on exertion, no pedal edema GI: No abdominal pain, no diarrhea, no vomiting, no constipation Respiratory: No shortness of breath, no wheezing, no coughing Hospitalist Physical - Physical exam Narrative exam: General.: Appears well, no distress, nontoxic HEENT: Moist mucous membranes, extraocular muscles intact, no lymphadenopathy Neck: supple Cardiac: S1-S2 heard Lungs: clear to auscultation bilaterally Abdomen: soft , nontender, nondistended, bowel sounds positive Extremities: no edema clubbing or cyanosis Skin: no rash or lesions Neurologic: no gross focal deficits Psych: appropriate behavior, appropriate mood, corporative, judgment intact - Constitutional Vitals: Temp Pulse Resp BP Pulse Ox 98.5 F 91 H 16 129/79 98 10/08/17 15:19 10/08/17 15:19 10/08/17 15:19 10/08/17 15:19 10/08/17 15:19 General appearance: Present: no acute distress, well-nourished Results - Labs CBC & Chem 7: 10/07/17 07:05 10/05/17 Unknown Labs: Laboratory Last Values WBC 4.5 K/mm3 (4.5-11.0) 10/05/17 Unknown RBC 3.33 M/mm3 (3.65-5.03) L 10/05/17 Unknown Hgb 9.7 gm/dl (11.8-15.2) L 10/07/17 07:05 Hct 30.2 % (35.5-45.6) L 10/07/17 07:05 MCV 84 fl (84-94) 10/05/17 Unknown MCH 27 pg (28-32) L 10/05/17 Unknown MCHC 32 % (32-34) 10/05/17 Unknown RDW 23.1 % (13.2-15.2) H 10/05/17 Unknown Plt Count 301 K/mm3 (140-440) 10/07/17 07:05 Lymph % (Auto) 42.1 % (13.4-35.0) H 10/05/17 Unknown [place] % (Auto) 10.9 % (0.0-7.3) H 10/05/17 Unknown Eos % (Auto) 7.6 % (0.0-4.3) H 10/05/17 Unknown Baso % (Auto) 1.2 % (0.0-1.8) 10/05/17 Unknown Lymph # 1.9 K/mm3 (1.2-5.4) 10/05/17 Unknown [place] # 0.5 K/mm3 (0.0-0.8) 10/05/17 Unknown Eos # 0.3 K/mm3 (0.0-0.4) 10/05/17 Unknown Baso # 0.1 K/mm3 (0.0-0.1) 10/05/17 Unknown Seg Neutrophils % 38.2 % (40.0-70.0) L 10/05/17 Unknown Seg Neutrophils # 1.7 K/mm3 (1.8-7.7) L 10/05/17 Unknown PT 15.2 Sec. (12.2-14.9) H 10/08/17 07:11 INR 1.14 (0.87-1.13) H 10/08/17 07:11 APTT 26.9 Sec. (24.2-36.6) 10/01/17 12:53 D-Dimer 527.54 ng/mlDDU (0-234) H 10/01/17 06:54 Heparin Anti-Xa Level 0.24 U.I./ml (0.3-0.7) L 10/03/17 12:38 Sodium 139 mmol/L (137-145) 10/05/17 Unknown Potassium 3.7 mmol/L (3.6-5.0) 10/05/17 Unknown Chloride 101.3 mmol/L (98-107) 10/05/17 Unknown Carbon Dioxide 26 mmol/L (22-30) 10/05/17 Unknown Anion Gap 15 mmol/L 10/05/17 Unknown BUN 10 mg/dL (9-20) 10/05/17 Unknown Creatinine 0.7 mg/dL (0.8-1.5) L 10/05/17 Unknown Estimated GFR > 60 ml/min 10/05/17 Unknown BUN/Creatinine Ratio 14 % 10/05/17 Unknown Glucose 83 mg/dL (75-100) 10/05/17 Unknown Lactic Acid 1.80 mmol/L (0.7-2.0) 10/01/17 08:59 Calcium 9.1 mg/dL (8.4-10.2) 10/05/17 Unknown Iron 28 ug/dL (49-181) L 10/01/17 12:53 TIBC 387 mcg/dL (250-450) 10/01/17 12:53 Ferritin 28.2 ng/mL (13.0-400.0) 10/01/17 12:53 Total Bilirubin 0.60 mg/dL (0.1-1.2) 10/01/17 06:54 AST 24 units/L (5-40) 10/01/17 06:54 ALT 14 units/L (7-56) 10/01/17 06:54 Alkaline Phosphatase 60 units/L (35-129) 10/01/17 06:54 Total Creatine Kinase 290 units/L (55-170) H 10/01/17 06:54 CK-MB (CK-2) 2.5 ng/mL (0.0-4.0) 10/01/17 06:54 CK-MB (CK-2) Rel Index 0.8 (0-4) 10/01/17 06:54 NT-Pro-B Natriuret Pep 6.29 pg/mL (0-450) 10/01/17 06:54 Total Protein 7.6 g/dL (6.3-8.2) 10/01/17 06:54 Albumin 4.3 g/dL (3.9-5) 10/01/17 06:54 Albumin/Globulin Ratio 1.3 % 10/01/17 06:54 Lipase 36 units/L (13-60) 10/01/17 06:54 Vitamin B12 474.4 pg/mL (211-911) 10/01/17 12:53 Folate 17.72 ng/mL (7.3-26.0) 10/01/17 12:53 Urine Color Yellow (Yellow) 10/01/17 07:32 Urine Turbidity Clear (Clear) 10/01/17 07:32 Urine pH 5.0 (5.0-7.0) 10/01/17 07:32 Ur Specific [place] 1.020 (1.003-1.030) 10/01/17 07:32 Urine Protein 30 mg/dl mg/dL (Negative) 10/01/17 07:32 Urine Glucose (UA) Neg mg/dL (Negative) 10/01/17 07:32 Urine Ketones Neg mg/dL (Negative) 10/01/17 07:32 Urine Blood Neg (Negative) 10/01/17 07:32 Urine Nitrite Neg (Negative) 10/01/17 07:32 Urine Bilirubin Neg (Negative) 10/01/17 07:32 Urine Urobilinogen < 2.0 mg/dL (<2.0) 10/01/17 07:32 Ur Leukocyte Esterase Neg (Negative) 10/01/17 07:32 Urine WBC (Auto) 1.0 /HPF (0.0-6.0) 10/01/17 07:32 Urine RBC (Auto) 1.0 /HPF (0.0-6.0) 10/01/17 07:32 Urine Bacteria (Auto) 1+ /HPF (Negative) 10/01/17 07:32 Urine Opiates Screen Presumptive negative 10/01/17 07:32 Urine Methadone Screen Presumptive negative 10/01/17 07:32 Ur Barbiturates Screen Presumptive negative 10/01/17 07:32 Ur Phencyclidine Scrn Presumptive negative 10/01/17 07:32 Ur Amphetamines Screen Presumptive negative 10/01/17 07:32 U Benzodiazepines Scrn Presumptive positive 10/01/17 07:32 Urine Cocaine Screen Presumptive negative 10/01/17 07:32 U Marijuana (THC) Screen Presumptive negative 10/01/17 07:32 Drugs of Abuse Note Disclamer 10/01/17 07:32 Plasma/Serum Alcohol < 0.01 % (0-0.07) 10/01/17 10:20 Blood Type O POSITIVE 10/01/17 08:50 Antibody Screen Negative 10/01/17 08:50
[2017-10-08] MEDS: COUMADIN PO SCH ×2 (17:03)
--- NOTE | 2017-10-08 19:14 | Progress Note ---
Hospitalist Physical - Constitutional Vitals: Temp Pulse Resp BP Pulse Ox 98.5 F 91 H 16 129/79 98 10/08/17 15:19 10/08/17 15:19 10/08/17 15:19 10/08/17 15:19 10/08/17 15:19 General appearance: Present: no acute distress, well-nourished Results - Labs CBC & Chem 7: 10/07/17 07:05 10/05/17 Unknown Labs: Laboratory Last Values WBC 4.5 K/mm3 (4.5-11.0) 10/05/17 Unknown RBC 3.33 M/mm3 (3.65-5.03) L 10/05/17 Unknown Hgb 9.7 gm/dl (11.8-15.2) L 10/07/17 07:05 Hct 30.2 % (35.5-45.6) L 10/07/17 07:05 MCV 84 fl (84-94) 10/05/17 Unknown MCH 27 pg (28-32) L 10/05/17 Unknown MCHC 32 % (32-34) 10/05/17 Unknown RDW 23.1 % (13.2-15.2) H 10/05/17 Unknown Plt Count 301 K/mm3 (140-440) 10/07/17 07:05 Lymph % (Auto) 42.1 % (13.4-35.0) H 10/05/17 Unknown [place] % (Auto) 10.9 % (0.0-7.3) H 10/05/17 Unknown Eos % (Auto) 7.6 % (0.0-4.3) H 10/05/17 Unknown Baso % (Auto) 1.2 % (0.0-1.8) 10/05/17 Unknown Lymph # 1.9 K/mm3 (1.2-5.4) 10/05/17 Unknown [place] # 0.5 K/mm3 (0.0-0.8) 10/05/17 Unknown Eos # 0.3 K/mm3 (0.0-0.4) 10/05/17 Unknown Baso # 0.1 K/mm3 (0.0-0.1) 10/05/17 Unknown Seg Neutrophils % 38.2 % (40.0-70.0) L 10/05/17 Unknown Seg Neutrophils # 1.7 K/mm3 (1.8-7.7) L 10/05/17 Unknown PT 15.2 Sec. (12.2-14.9) H 10/08/17 07:11 INR 1.14 (0.87-1.13) H 10/08/17 07:11 APTT 26.9 Sec. (24.2-36.6) 10/01/17 12:53 D-Dimer 527.54 ng/mlDDU (0-234) H 10/01/17 06:54 Heparin Anti-Xa Level 0.24 U.I./ml (0.3-0.7) L 10/03/17 12:38 Sodium 139 mmol/L (137-145) 10/05/17 Unknown Potassium 3.7 mmol/L (3.6-5.0) 10/05/17 Unknown Chloride 101.3 mmol/L (98-107) 10/05/17 Unknown Carbon Dioxide 26 mmol/L (22-30) 10/05/17 Unknown Anion Gap 15 mmol/L 10/05/17 Unknown BUN 10 mg/dL (9-20) 10/05/17 Unknown Creatinine 0.7 mg/dL (0.8-1.5) L 10/05/17 Unknown Estimated GFR > 60 ml/min 10/05/17 Unknown BUN/Creatinine Ratio 14 % 10/05/17 Unknown Glucose 83 mg/dL (75-100) 10/05/17 Unknown Lactic Acid 1.80 mmol/L (0.7-2.0) 10/01/17 08:59 Calcium 9.1 mg/dL (8.4-10.2) 10/05/17 Unknown Iron 28 ug/dL (49-181) L 10/01/17 12:53 TIBC 387 mcg/dL (250-450) 10/01/17 12:53 Ferritin 28.2 ng/mL (13.0-400.0) 10/01/17 12:53 Total Bilirubin 0.60 mg/dL (0.1-1.2) 10/01/17 06:54 AST 24 units/L (5-40) 10/01/17 06:54 ALT 14 units/L (7-56) 10/01/17 06:54 Alkaline Phosphatase 60 units/L (35-129) 10/01/17 06:54 Total Creatine Kinase 290 units/L (55-170) H 10/01/17 06:54 CK-MB (CK-2) 2.5 ng/mL (0.0-4.0) 10/01/17 06:54 CK-MB (CK-2) Rel Index 0.8 (0-4) 10/01/17 06:54 NT-Pro-B Natriuret Pep 6.29 pg/mL (0-450) 10/01/17 06:54 Total Protein 7.6 g/dL (6.3-8.2) 10/01/17 06:54 Albumin 4.3 g/dL (3.9-5) 10/01/17 06:54 Albumin/Globulin Ratio 1.3 % 10/01/17 06:54 Lipase 36 units/L (13-60) 10/01/17 06:54 Vitamin B12 474.4 pg/mL (211-911) 10/01/17 12:53 Folate 17.72 ng/mL (7.3-26.0) 10/01/17 12:53 Urine Color Yellow (Yellow) 10/01/17 07:32 Urine Turbidity Clear (Clear) 10/01/17 07:32 Urine pH 5.0 (5.0-7.0) 10/01/17 07:32 Ur Specific [place] 1.020 (1.003-1.030) 10/01/17 07:32 Urine Protein 30 mg/dl mg/dL (Negative) 10/01/17 07:32 Urine Glucose (UA) Neg mg/dL (Negative) 10/01/17 07:32 Urine Ketones Neg mg/dL (Negative) 10/01/17 07:32 Urine Blood Neg (Negative) 10/01/17 07:32 Urine Nitrite Neg (Negative) 10/01/17 07:32 Urine Bilirubin Neg (Negative) 10/01/17 07:32 Urine Urobilinogen < 2.0 mg/dL (<2.0) 10/01/17 07:32 Ur Leukocyte Esterase Neg (Negative) 10/01/17 07:32 Urine WBC (Auto) 1.0 /HPF (0.0-6.0) 10/01/17 07:32 Urine RBC (Auto) 1.0 /HPF (0.0-6.0) 10/01/17 07:32 Urine Bacteria (Auto) 1+ /HPF (Negative) 10/01/17 07:32 Urine Opiates Screen Presumptive negative 10/01/17 07:32 Urine Methadone Screen Presumptive negative 10/01/17 07:32 Ur Barbiturates Screen Presumptive negative 10/01/17 07:32 Ur Phencyclidine Scrn Presumptive negative 10/01/17 07:32 Ur Amphetamines Screen Presumptive negative 10/01/17 07:32 U Benzodiazepines Scrn Presumptive positive 10/01/17 07:32 Urine Cocaine Screen Presumptive negative 10/01/17 07:32 U Marijuana (THC) Screen Presumptive negative 10/01/17 07:32 Drugs of Abuse Note Disclamer 10/01/17 07:32 Plasma/Serum Alcohol < 0.01 % (0-0.07) 10/01/17 10:20 Blood Type O POSITIVE 10/01/17 08:50 Antibody Screen Negative 10/01/17 08:50
[2017-10-08] MEDS: HABITROL TD SCH (22:50)
[2017-10-09] MEDS: XANAX PO PRN ×3 (08:35→22:37)
[2017-10-09] MEDS: PERCOCET 5/325 PO PRN ×4 (08:35→21:44)
[2017-10-09 10:20] LABS: Hematocrit 32.2 % (35.5-45.6); Hemoglobin 10.7 gm/dl (11.8-15.2)
[2017-10-09 10:57] LABS: INR 1.28 (0.87-1.13)
[2017-10-09] MEDS: NORVASC PO SCH (12:21)
[2017-10-09] MEDS: HABITROL TD SCH (12:21)
[2017-10-09] MEDS: NORMODYNE PO SCH ×2 (12:22→22:37)
[2017-10-09] MEDS: LOVENOX SUB-Q SCH ×2 (12:23→22:37)
[2017-10-09] MEDS ORDERED: COUMADIN PO SCH (17:00)
[2017-10-10] MEDS: PERCOCET 5/325 PO PRN ×2 (01:44→09:43)
[2017-10-10 07:19] LABS: INR 1.4 (0.87-1.13)
[2017-10-10] MEDS: XANAX PO PRN (08:24)
[2017-10-10] MEDS: HABITROL TD SCH (09:35)
[2017-10-10] MEDS: NORMODYNE PO SCH (09:35)
[2017-10-10] MEDS: NORVASC PO SCH (09:35)
[2017-10-10] MEDS: LOVENOX SUB-Q SCH (09:36)
[2017-10-10 09:58] VITALS: BP 119/75
[2017-10-10] MEDS ORDERED: PERCOCET 5/325 PO PRN (12:45)
[2017-10-10] MEDS ORDERED: ELIQUIS PO SCH (13:00)
[2017-10-10] MEDS ORDERED: ELIQUIS PO ONE (15:30)
== END 2017-10-10 16:51 | disposition home or self-care (01) | DRG 176 ==
LOC: ED 03:47 → 4A 13:18 → 3A 10-05 11:22
PROVIDERS: ADMIT Family Medicine; ATTEND Internal Medicine
PROC: 02HV33Z Insertion of Infusion Device into Superior Vena Cava, Percutaneous Approach (ICD-10-PCS; principal; 2017-10-01)
DX: I26.99 Other pulmonary embolism without acute cor pulmonale (principal); F10.239 Alcohol dependence with withdrawal, unspecified; R65.10 Systemic inflammatory response syndrome (SIRS) of non-infectious origin without acute organ dysfunction; D64.9 Anemia, unspecified; M79.89 Other specified soft tissue disorders; I10 Essential (primary) hypertension; F41.9 Anxiety disorder, unspecified; F17.200 Nicotine dependence, unspecified, uncomplicated; G89.4 Chronic pain syndrome; Z91.14 Patient's other noncompliance with medication regimen; Z71.41 Alcohol abuse counseling and surveillance of alcoholic; I25.2 Old myocardial infarction; Z86.718 Personal history of other venous thrombosis and embolism
CPT/HCPCS: 36415; 71045; 71275; 74177; 80048; 80053; 80307; 80320; 81001; 82140; 82550; 82553; 82607; 82728; 82747; 83550; 83690; 83880; 85014; 85018; 85025; 85049; 85379; 85520; 85610; 85730; 86850; 86900; 86901; 87040; 93005; 93010; 96365; 96366; 96367; 96375; 99291; A6250; G0480; J0360; J1644; J1650; J2060; J2270; J2405; J2543; J3370; J7030; J7040; J7050; Q9967

== ENCOUNTER 2017-10-11 18:28 | Emergency (ER) | payer SELFPAY ==
[2017-10-12] MEDS ORDERED: NACL 0.9% 1000 ML 2,000 ML IV ONE (03:17)
[2017-10-12] MEDS ORDERED: TYLENOL PO ONE (03:32)
[2017-10-12] MEDS ORDERED: ELIQUIS PO ONE (03:34)
[2017-10-12 04:02] LABS: Hemoglobin 10.6 gm/dl (11.8-15.2); Mean Corpuscular HGB Conc 32 % (32-34); Mean Corpuscular Hemoglobin 26 pg (28-32); Mean Corpuscular Volume 82 fl (84-94); Platelet Count 519 K/mm3 (140-440); Red Blood Count 4.03 M/mm3 (3.65-5.03)
[2017-10-12 04:03] LABS: Red Cell Distribution Width 21.9 % (13.2-15.2)
[2017-10-12 04:22] LABS: BUN/Creatinine Ratio 17; Blood Urea Nitrogen 10 mg/dL (9-20); Calcium 8.8 mg/dL (8.4-10.2); Hemolysis Index 4
[2017-10-12 05:10] LABS: Eosinophils % (Manual) 0 % (0.0-4.3); Total Cells Counted 100
[2017-10-12 05:12] LABS: Platelet Estimate Appears Increased
--- NOTE | 2017-10-12 05:18 | Emergency Department Report ---
HPI - General Chief Complaint: Extremity Injury, Lower Time Seen by Provider: 10/12/17 03:16 - HPI HPI: The patient is a 32-year-old male who presents for evaluation of continued leg pain with a history of recent diagnosis of DVT. The patient reports constant bilateral lower leg pain for the past one day, moderate to severe, sharp in quality, radiating proximally, and exacerbated with movement of the leg. He admits to consuming a large amount of alcohol prior to presentation, and experiencing agitation at the being awoken on a [employer] bus. He admits to falling asleep on the bus as he was tired secondary to large amount of alcohol consumption. The patient denies trauma to the legs, back pain, fever, neck pain , parasthesias, dyspnea, cough, hemoptysis, palpitations, dizziness, syncope, recent immobilization, or history of cancer. He requests assistance with filling his prescription medications. 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 ED Past Medical Hx - Past Medical History Hx Hypertension: Yes Hx Heart Attack/AMI: Yes Hx Deep Vein Thrombosis: Yes Hx Pulmonary Embolism: Yes Hx Liver Disease: Yes (elev. LFTs) Hx Seizures: Yes (ETOH withdrawal) Hx Psychiatric Treatment: Yes (Anxiety, ADHD,) Hx Asthma: Yes Additional medical history: DVTs, pancreatitis, COLITIS. ETOH withdrawal sz- intubated @ [facility] week of 10/06/14, MRSA - Surgical History Additional Surgical History: b/l knee surgeries - Social History Smoking Status: Current Every Day Smoker Substance Use Type: Alcohol - Medications Home Medications: Home Medications Medication Instructions Recorded Confirmed Last Taken Type ALPRAZolam [Xanax TAB] 1 mg PO Q8H PRN #30 tablet 10/05/17 Unknown Rx Apixaban [Eliquis] 5 mg PO BID #60 tablet 10/05/17 Unknown Rx Esomeprazole Magnesium [NexIUM] 20 mg PO QDAY #30 tab 10/05/17 Unknown Rx Folic Acid [Folvite] 1 mg PO QDAY #30 tablet 10/05/17 Unknown Rx Klonopin 1 mg PO BID #14 10/05/17 Unknown Rx Labetalol [Normodyne TAB] 100 mg PO BID #60 tablet 10/05/17 Unknown Rx Mometasone Furoate [Nasonex] 2 spray NS BID #1 spray.pump 10/05/17 Unknown Rx Nicotine [Habitrol] 14 mg TD QDAY #14 patch 10/05/17 Unknown Rx Oxycodone HCl/Acetaminophen 1 each PO Q6HR PRN #14 tablet 10/05/17 Unknown Rx [Percocet 10/325 mg] Rivaroxaban [Xarelto] 20 mg PO QDAY #30 tablet 10/05/17 Unknown Rx Thiamine [Vitamin B-1] 100 mg PO DAILY #30 tablet 10/05/17 Unknown Rx amLODIPine [Norvasc] 10 mg PO QDAY #30 tablet 10/05/17 Unknown Rx clonazePAM [Klonopin] 1 mg PO BID #60 tablet 10/05/17 Unknown Rx Nicotine [Habitrol] 14 mg TD QDAY #30 patch 10/10/17 Unknown Rx oxyCODONE /ACETAMINOPHEN [Percocet 2 tab PO Q6H PRN #14 tablet 10/10/17 Unknown Rx 5/325 mg] ED Review of Systems ROS: Stated complaint: ANXIETY ATTACK/MEDICATION REFILL Other details as noted in HPI Constitutional: denies: fever ENT: denies: throat or neck pain Respiratory: denies: cough, shortness of breath Cardiovascular: denies: chest pain Endocrine: denies unexplained weight loss or gain Gastrointestinal: denies: abdominal pain, nausea Genitourinary: denies: dysuria Musculoskeletal: reports leg pain denies: leg swelling Skin: denies: rash Neurological: denies: headache Hematological/Lymphatic: denies: easy bleeding or easy bruising Psych: denies sadness or hopelessness Physical Exam - Physical Exam Vital Signs: Vital Signs 10/11/17 10/12/17 10/12/17 18:37 02:32 02:46 Temperature 98 F Pulse Rate 118 H 83 105 H Respiratory 18 12 Rate Blood Pressure 143/85 O2 Sat by Pulse 95 100 Oximetry 10/12/17 10/12/17 10/12/17 03:00 03:16 03:30 Temperature Pulse Rate 98 H 98 H 103 H Respiratory 15 15 14 Rate Blood Pressure 134/90 134/90 122/67 O2 Sat by Pulse 99 100 97 Oximetry 10/12/17 03:36 Temperature Pulse Rate Respiratory 20 Rate Blood Pressure O2 Sat by Pulse 97 Oximetry Physical Exam: General: well-nourished, well-developed, no acute distress Head: Normocephalic, atraumatic Eyes: normal sclera ENT: Mucous membranes are pink and moist Neck: trachea midline, neck supple, No neck stiffness, no cervical adenopathy Respiratory: Breath sounds equal bilaterally, no wheezing, rales, or rhonchi Cardio: S1 and S2 present, no murmurs, rubs, gallops, capillary refill is brisk Abdomen: Normoactive bowel sounds, soft abdomen, no rigidity, no guarding or rebound tenderness Chest WALL/Back: No tenderness to palpation of the chest wall, no CVA tenderness with percussion Musc: Bilateral Muscle tenderness to palpation present, No pitting edema Skin: No rash Neuro: no facial drooping, normal speech Psych: Normal affect ED Course Vital Signs 10/11/17 10/12/17 10/12/17 18:37 02:32 02:46 Temperature 98 F Pulse Rate 118 H 83 105 H Respiratory 18 12 Rate Blood Pressure 143/85 O2 Sat by Pulse 95 100 Oximetry 10/12/17 10/12/17 10/12/17 03:00 03:16 03:30 Temperature Pulse Rate 98 H 98 H 103 H Respiratory 15 15 14 Rate Blood Pressure 134/90 134/90 122/67 O2 Sat by Pulse 99 100 97 Oximetry 10/12/17 03:36 Temperature Pulse Rate Respiratory 20 Rate Blood Pressure O2 Sat by Pulse 97 Oximetry ED Medical Decision Making - Lab Data Result diagrams: 10/12/17 03:36 10/12/17 03:36 - Medical Decision Making The patient was seen and examined by myself. The patient is placed on a commercial review appraiser and continuous pulse ox. On initial evaluation, the patient was found to be in no distress. Evaluation orders are placed. The patient is given pain medicine and his daily dose of eliquis. Lab results were non- concerning including WBC, hemoglobin, hematocrit, electrolytes, renal function. Medical records are reviewed and revealed that the patient was discharged one day ago after admission for DVT. The patient requests assistance with obtaining prescription medications. Case management was consulted. The patient is signed out to the [place] [facility] [place], who agrees to arrange ultimate appropriate disposition after consultation with case management. Critical care attestation.: If time is entered above; I have spent that time in minutes in the direct care of this critically ill patient, excluding procedure time. ED Disposition Clinical Impression: Pain of right lower extremity, Dehydration, mild Acute alcohol intoxication Qualifiers: Complication of substance-induced condition: uncomplicated Qualified Code(s): F10.929 - Alcohol use, unspecified with intoxication, unspecified Disposition: DC-01 TO HOME OR SELFCARE Is pt being admited?: No Does the pt Need Aspirin: No Condition: Stable Instructions: Musculoskeletal Pain (ED), Deep Venous Thrombosis (ED) Referrals: PRIMARY CARE, [Primary Care Provider] - 3-5 Days Time of Disposition: 06:06
[2017-10-12] MEDS ORDERED: ELIQUIS PO SCH (10:00)
[2017-10-12 10:17] VITALS: BP 139/83
== END 2017-10-12 10:33 | disposition home or self-care (01) ==
LOC: ED 18:28
DX: M79.661 Pain in right lower leg (principal); F10.129 Alcohol abuse with intoxication, unspecified; F90.9 Attention-deficit hyperactivity disorder, unspecified type; F41.9 Anxiety disorder, unspecified; F17.200 Nicotine dependence, unspecified, uncomplicated; E86.0 Dehydration; I10 Essential (primary) hypertension; I25.2 Old myocardial infarction; J45.909 Unspecified asthma, uncomplicated; Z79.899 Other long term (current) drug therapy; Z86.718 Personal history of other venous thrombosis and embolism; Z91.018 Allergy to other foods; Z88.8 Allergy status to other drugs, medicaments and biological substances
CPT/HCPCS: 36415; 80048; 85007; 85025; 93005; 93010; 96360; 96361; 99284; G0480; J7030; 80320